=== PATIENT | female | born 1955 | race Caucasian/White ===

== ENCOUNTER 2016-09-18 12:16 | Inpatient (IN) | payer BC ==
[2016-09-18] MEDS ORDERED: SODIUM CHLORIDE 0.9% 1,000 ML IV STA (12:51)
[2016-09-18] MEDS ORDERED: IPRATROPIUM-ALBUTEROL 3 ML NEB INHALATION STA (12:51)
--- NOTE | 2016-09-18 12:54 | ED ---
General Adult HPI - General Source: patient, RN notes reviewed Mode of arrival: ambulatory Limitations: no limitations <Herbie Robertson - Last Filed: 09/18/16 14:09> <David Sow - Last Filed: 09/18/16 14:35> - General Chief complaint: Shortness of Breath Stated complaint: Difficulty breathing Time Seen by Provider: 09/18/16 12:40 - History of Present Illness Initial comments: Patient 61-year-old female significant past medical history for COPD, who presents emergency room today with chief complaint of increased cough congestion over the last 3 days. She does admit that she was cleaning up some areas of the house where she noticed some old. She states she thinks it's related to that. She states a few days after that she began feeling sick. States she's tried [id number] medications with little relief. She does admit that she does have a history of COPD but does not use the inhalers and breathing treatment at home due to the expense. She does admit that she went to [facility] earlier today who did do a breathing treatment and steroid shot advised to come here to the emergency room. Patient admits that she is still feeling somewhat short of breath and congested. She denies any pain. Denies any other complaints. Patient denies any recent fever, chills, chest pain, back pain, abdominal pain, nausea or vomiting, numbness or tingling, dysuria or hematuria, constipation or diarrhea, headaches or visual changes, or any other complaints. (Herbie Robertson) - Related Data Home Medications Medication Instructions Recorded Confirmed Calcium Carbonate [Calcium] 600 mg PO DAILY 09/18/16 09/18/16 FLUoxetine HCL [PROzac] 40 mg PO DAILY 09/18/16 09/18/16 Multivitamins, Thera [Multivitamin 1 tab PO DAILY 09/18/16 09/18/16 (formulary)] Simvastatin Unknown Dose 1 tab PO HS 09/18/16 09/18/16 Allergies Allergy/AdvReac Type Severity Reaction Status Date / Time erythromycin base Allergy Unknown Verified 09/18/16 13:16 Review of Systems ROS Other: All systems not noted in ROS Statement are negative. <Herbie Robertson - Last Filed: 09/18/16 14:09> ROS Other: All systems not noted in ROS Statement are negative. <David Sow - Last Filed: 09/18/16 14:35> ROS Statement: Those systems with pertinent positive or pertinent negative responses have been documented in the HPI. Past Medical History Past Medical History: COPD, Hypertension History of Any Multi-Drug Resistant Organisms: None Reported Past Surgical History: Breast Surgery, Hysterectomy, Tonsillectomy Past Psychological History: Depression Smoking Status: Former smoker Past Alcohol Use History: Occasional Past Drug Use History: None Reported <RobertsonHerbie - Last Filed: 09/18/16 14:09> General Exam Limitations: no limitations <MarceloHerbie - Last Filed: 09/18/16 14:09> General appearance: alert, in no apparent distress, anxious Head exam: Present: atraumatic, normocephalic, normal inspection Eye exam: Present: normal appearance, PERRL, EOMI. Absent: scleral icterus, conjunctival injection, periorbital swelling ENT exam: Present: normal exam, mucous membranes moist Neck exam: Present: normal inspection. Absent: tenderness, meningismus, lymphadenopathy Respiratory exam: Present: normal lung sounds bilaterally, wheezes, decreased breath sounds, prolonged expiratory. Absent: respiratory distress, rales, rhonchi, stridor Cardiovascular Exam: Present: regular rate, normal rhythm, normal heart sounds. Absent: systolic murmur, diastolic murmur, rubs, gallop, clicks GI/Abdominal exam: Present: soft, normal bowel sounds. Absent: distended, tenderness, guarding, rebound, rigid Extremities exam: Present: normal inspection, full ROM, normal capillary refill. Absent: tenderness, pedal edema, joint swelling, calf tenderness Back exam: Present: normal inspection Neurological exam: Present: alert, oriented X3, CN II-XII intact Psychiatric exam: Present: normal affect, normal mood Skin exam: Present: warm, dry, intact, normal color. Absent: rash <David Sow - Last Filed: 09/18/16 14:35> - General Exam Comments Initial Comments: General: The patient is awake and alert, in mild distress Eye: Pupils are equal, round and reactive to light, extra-ocular movements are intact. No nystagmus. There is normal conjunctiva bilaterally. No signs of icterus. Ears, nose, mouth and throat: There are moist mucous membranes and no oral lesions. Neck: The neck is supple, there is no tenderness or JVD. Cardiovascular: There is a regular rate and rhythm. No murmur, rub or gallop is appreciated. Respiratory: Bilateral expiratory wheeze. Mild accessory muscle use. No stridor, rales, or rhonchi. Gastrointestinal: Soft, non-distended, non-tender abdomen without masses or organomegaly noted. There is no rebound or guarding present. No CVA tenderness. Bowel sounds are unremarkable. Musculoskeletal: Normal ROM, no tenderness. Strength 5/5. Sensation intact. Pulses equal bilaterally 2+. Neurological: A&O x 3. CN II-XII intact, There are no obvious motor or sensory deficits. Coordination appears grossly intact. Speech is normal. Skin: Skin is warm and dry and no rashes or lesions are noted. Psychiatric: Cooperative, appropriate mood & affect, normal judgment. (Herbie Robertson) Medical Decision Making - Lab Data Result diagrams: 09/18/16 13:05 09/18/16 13:05 <Herbie Robertson - Last Filed: 09/18/16 14:09> - Lab Data Result diagrams: 09/18/16 13:05 09/18/16 13:05 <David Sow - Last Filed: 09/18/16 14:35> - Medical Decision Making Patient reexamined at this time still showing signs of respiratory distress. We 'll be given hour-long treatment at this time. Patient's labs reviewed shows a 10 red 7 white cells. Patient denies any UTI symptoms. Culture pending. Patient will be admitted for COPD exacerbation. Continue breathing treatments and steroids. (Herbie Robertson) 61 female here with severe shortness of breath, history of COPD, coronary with COPD exacerbation, hypoxia, no improvement on impatient and ER nebulizer, will admit (David Sow) - Lab Data Lab Results 09/18/16 09/18/16 09/18/16 Range/Units 13:05 13:05 13:05 WBC 8.7 (3.8-10.6) k/uL RBC 5.04 (3.80-5.40) m/uL Hgb 15.6 (11.4-16.0) gm/dL Hct 46.8 H (34.0-46.0) % MCV 92.8 (80.0-100.0) fL MCH 31.0 (25.0-35.0) pg MCHC 33.4 (31.0-37.0) g/dL RDW 12.8 (11.5-15.5) % Plt Count 199 (150-450) k/uL Neutrophils % 76 % Lymphocytes % 18 % Monocytes % 3 % Eosinophils % 1 % Basophils % 1 % Neutrophils # 6.6 (1.3-7.7) k/uL Lymphocytes # 1.6 (1.0-4.8) k/uL Monocytes # 0.2 (0-1.0) k/uL Eosinophils # 0.1 (0-0.7) k/uL Basophils # 0.1 (0-0.2) k/uL PT (9.0-12.0) sec INR (<1.1) APTT (22.0-30.0) sec Sodium 143 (137-145) mmol/L Potassium 3.9 (3.5-5.1) mmol/L Chloride 106 (98-107) mmol/L Carbon Dioxide 24 (22-30) mmol/L Anion Gap 13 mmol/L BUN 14 (7-17) mg/dL Creatinine 0.85 (0.52-1.04) mg/dL Est GFR (MDRD) Af Amer >60 (>60 ml/min/1.73 sqM) Est GFR (MDRD) Non-Af >60 (>60 ml/min/1.73 sqM) Glucose 114 H (74-99) mg/dL Calcium 10.9 H (8.4-10.2) mg/dL Total Bilirubin 0.8 (0.2-1.3) mg/dL AST 101 H (14-36) U/L ALT 153 H (9-52) U/L Alkaline Phosphatase 86 (38-126) U/L Total Creatine Kinase 86 (30-135) U/L CK-MB (CK-2) 0.6 (0.0-2.4) ng/mL CK-MB (CK-2) Rel Index 0.7 Troponin I <0.012 (0.000-0.034) ng/mL Total Protein 8.2 (6.3-8.2) g/dL Albumin 4.8 (3.5-5.0) g/dL Urine Color Urine Appearance (Clear) Urine pH (5.0-8.0) Ur Specific [place] (1.001-1.035) Urine Protein (Negative) Urine Glucose (UA) (Negative) Urine Ketones (Negative) Urine Blood (Negative) Urine Nitrite (Negative) Urine Bilirubin (Negative) Urine Urobilinogen (<2.0) mg/dL Ur Leukocyte Esterase (Negative) Urine RBC (0-5) /hpf Urine WBC (0-5) /hpf Ur Squamous Epith Cells (0-4) /hpf 09/18/16 09/18/16 Range/Units 13:05 13:05 WBC (3.8-10.6) k/uL RBC (3.80-5.40) m/uL Hgb (11.4-16.0) gm/dL Hct (34.0-46.0) % MCV (80.0-100.0) fL MCH (25.0-35.0) pg MCHC (31.0-37.0) g/dL RDW (11.5-15.5) % Plt Count (150-450) k/uL Neutrophils % % Lymphocytes % % Monocytes % % Eosinophils % % Basophils % % Neutrophils # (1.3-7.7) k/uL Lymphocytes # (1.0-4.8) k/uL Monocytes # (0-1.0) k/uL Eosinophils # (0-0.7) k/uL Basophils # (0-0.2) k/uL PT 10.5 (9.0-12.0) sec INR 1.0 (<1.1) APTT 24.7 (22.0-30.0) sec Sodium (137-145) mmol/L Potassium (3.5-5.1) mmol/L Chloride (98-107) mmol/L Carbon Dioxide (22-30) mmol/L Anion Gap mmol/L BUN (7-17) mg/dL Creatinine (0.52-1.04) mg/dL Est GFR (MDRD) Af Amer (>60 ml/min/1.73 sqM) Est GFR (MDRD) Non-Af (>60 ml/min/1.73 sqM) Glucose (74-99) mg/dL Calcium (8.4-10.2) mg/dL Total Bilirubin (0.2-1.3) mg/dL AST (14-36) U/L ALT (9-52) U/L Alkaline Phosphatase (38-126) U/L Total Creatine Kinase (30-135) U/L CK-MB (CK-2) (0.0-2.4) ng/mL CK-MB (CK-2) Rel Index Troponin I (0.000-0.034) ng/mL Total Protein (6.3-8.2) g/dL Albumin (3.5-5.0) g/dL Urine Color Yellow Urine Appearance Clear (Clear) Urine pH 8.0 (5.0-8.0) Ur Specific [place] 1.010 (1.001-1.035) Urine Protein Negative (Negative) Urine Glucose (UA) Negative (Negative) Urine Ketones Negative (Negative) Urine Blood Negative (Negative) Urine Nitrite Negative (Negative) Urine Bilirubin Negative (Negative) Urine Urobilinogen <2.0 (<2.0) mg/dL Ur Leukocyte Esterase Large H (Negative) Urine RBC 10 H (0-5) /hpf Urine WBC 47 H (0-5) /hpf Ur Squamous Epith Cells 2 (0-4) /hpf Critical Care Time Critical Care Time: Yes <David Sow - Last Filed: 09/18/16 14:35> Disposition Time of Disposition: 14:10 <Herbie Robertson - Last Filed: 09/18/16 14:09> <David Sow - Last Filed: 09/18/16 14:35> Clinical Impression: COPD exacerbation, Hypoxia Disposition: ADMITTED IP TO THIS HOSP Condition: Serious Referrals: None,Stated [Primary Care Provider] - 1-2 days
[2016-09-18 13:21] LABS: Basophils # (A) 0.1 k/uL (0-0.2); Basophils % (A) 1 %; CH 31.3; CHCM 33.9; Eosinophils # (A) 0.1 k/uL (0-0.7); Eosinophils % (A) 1 %; HCT 46.8 % (34.0-46.0); HGB 15.6 gm/dL (11.4-16.0); Luc # (Auto) 0.15; Luc % (Auto) 2; Lymphocytes # (A) 1.6 k/uL (1.0-4.8); Lymphocytes % (A) 18 %; MCHC 33.4 g/dL (31.0-37.0); MCV 92.8 fL (80.0-100.0); Mean Platelet Volume 7.4; Monocytes # (A) 0.2 k/uL (0-1.0); Monocytes % (A) 3 %; Neutrophils # (A) 6.6 k/uL (1.3-7.7); Neutrophils % (A) 76 %; RBC 5.04 m/uL (3.80-5.40); RDW 12.8 % (11.5-15.5); WBC 8.7 k/uL (3.8-10.6); WBC (Perox) 8.46
[2016-09-18 13:28] LABS: Partial Thromboplastin Time 24.7 sec (22.0-30.0); Prothrombin Time 10.5 sec (9.0-12.0)
[2016-09-18 13:31] LABS: ALT 153 U/L (9-52); AST 101 U/L (14-36); Alkaline Phosphatase 86 U/L (38-126); Anion Gap 13 mmol/L; Blood Urea Nitrogen 14 mg/dL (7-17); Calcium 10.9 mg/dL (8.4-10.2); Carbon Dioxide 24 mmol/L (22-30); Chloride 106 mmol/L (98-107); Glucose 114 mg/dL (74-99); Non-African American GFR(MDRD) >60 (>60 ml/min/1.73 sqM); Potassium 3.9 mmol/L (3.5-5.1); Sodium 143 mmol/L (137-145); Total Bilirubin 0.8 mg/dL (0.2-1.3); Total Protein 8.2 g/dL (6.3-8.2)
[2016-09-18] MEDS ORDERED: ACETAMINOPHEN TAB 500 MG TAB PO STA (13:37)
[2016-09-18 13:41] LABS: Creatine Kinase 86 U/L (30-135)
[2016-09-18 13:51] LABS: Appearance,Urine Clear (Clear); Bilirubin,Urine Negative (Negative); Glucose,Urine (UA) Negative (Negative); Ketones,Urine Negative (Negative); Leukocyte Esterase,Urine Large (Negative); Nitrite,Urine Negative (Negative); Particle Count 6059; Protein,Urine Negative (Negative); RBC,Urine 10 /hpf (0-5); Squamous Epithelial Cell,Urine 2 /hpf (0-4); UA Billing (MACRO vs. MICRO) MICRO; Urobilinogen,Urine <2.0 mg/dL (<2.0); WBC,Urine 47 /hpf (0-5)
--- NOTE | 2016-09-18 13:53 | XR ---
EXAMINATION TYPE: XR chest 2V DATE OF EXAM: 09/18/2016 1:28 PM COMPARISON: NONE. HISTORY: Shortness of breath with history of COPD/pulmonary emphysema TECHNIQUE: Frontal and lateral views of the chest are obtained. FINDINGS: There is no focal air space opacity, pleural effusion, or pneumothorax seen. There is mya pical lucency with tapering of the pulmonary vasculature relating to the patient's underlying COPD. T here is no appreciable flattening of the diaphragms or increased retrosternal airspace. The cardiac s ilhouette size is within normal limits. The osseous structures are intact. IMPRESSION: Biapical lucency related to underlying emphysematous changes. No focal consolidation.
[2016-09-18 13:54] LABS: Creatine Kinase MB 0.6 ng/mL (0.0-2.4); Troponin I <0.012 ng/mL (0.000-0.034)
[2016-09-18] MEDS ORDERED: ALBUTEROL NEBULIZED 15 MG, IPRATROPIUM NEBULIZED 0.5 MG INHALATION ONE ×2 (14:06)
[2016-09-18] MEDS ORDERED: SODIUM CHLORIDE 0.9% 1,000 ML IV ONE (14:14)
[2016-09-18] MEDS ORDERED: IPRATROPIUM-ALBUTEROL 3 ML NEB INHALATION PRN (14:14)
[2016-09-18 16:42] VITALS: BMI 29.2
[2016-09-18 16:53] LABS: Glucose,Whole Blood 210 mg/dL (75-99)
[2016-09-18] MEDS: INSULIN LISPRO (humaLOG) 300 UNIT/3 ML VIAL SQ SCH ×2 (17:20→21:08)
[2016-09-18] MEDS: methylPREDNISolone SOD SUCCI 125 MG/2 ML VIAL IV SCH ×2 (17:22→23:53)
[2016-09-18] MEDS: ACETAMINOPHEN TAB 325 MG TAB PO PRN ×2 (17:26→23:55)
[2016-09-18] MEDS: ENOXAPARIN 40 MG/0.4 ML SYRINGE SQ SCH (17:52)
[2016-09-18] MEDS ORDERED: IPRATROPIUM-ALBUTEROL 3 ML NEB INHALATION SCH (20:00)
[2016-09-18] MEDS: IPRATROPIUM-ALBUTEROL 3 ML NEB INHALATION SCH ×2 (20:38→23:06)
[2016-09-18 20:53] LABS: Glucose,Whole Blood 224 mg/dL (75-99)
[2016-09-18] MEDS: MELATONIN 3 MG TABLET PO SCH (21:09)
[2016-09-19] MEDS: methylPREDNISolone SOD SUCCI 125 MG/2 ML VIAL IV SCH ×3 (06:04→17:44)
[2016-09-19] MEDS: ACETAMINOPHEN TAB 325 MG TAB PO PRN ×3 (06:08→21:47)
[2016-09-19 07:04] LABS: Glucose,Whole Blood 140 mg/dL (75-99)
[2016-09-19] MEDS: IPRATROPIUM-ALBUTEROL 3 ML NEB INHALATION SCH ×4 (07:53→19:26)
[2016-09-19] MEDS: INSULIN LISPRO (humaLOG) 300 UNIT/3 ML VIAL SQ SCH ×4 (07:57→21:39)
[2016-09-19] MEDS: ENOXAPARIN 40 MG/0.4 ML SYRINGE SQ SCH (07:57)
[2016-09-19] MEDS: FLUoxetine HCL 20 MG CAP PO SCH (07:57)
[2016-09-19 09:05] LABS: Hemoglobin A1C 5.9 % (4.2-6.1)
--- NOTE | 2016-09-19 09:57 | HP ---
DATE OF ADMISSION: 09/18/2016 PRESENTING COMPLAINT: Not feeling well, short of breath, wheezing. HISTORY OF PRESENTING COMPLAINT: This is a pleasant 61-year-old patient who does not have a family doctor currently. Patient has got COPD from ex-smoking. Other chronic stable conditions include hyperlipidemia, arthritis. Patient presents with worsening cough, wheezing, short of breath. No sputum production. Some head, throat achiness, shortness of breath. Started on nebulized bronchodilators for which she feels a bit better. REVIEW OF SYSTEMS: CONSTITUTIONAL: Weak, tired. HEENT: Slight headache and sore throat. RESPIRATORY: As above. CARDIOVASCULAR: None. GASTROINTESTINAL: None. MUSCULOSKELETAL: Pain in the joints especially in the knees and hands. DERMATOLOGICAL: None. HEMATOLOGIC: None. LYMPHATICS: None. PSYCHIATRY: Anxious. NEUROLOGICAL: Not able to sleep well. GENITOURINARY: Urinary incontinence. Past medical history of COPD, hyperlipidemia, arthritis. PAST SURGICAL HISTORY: Breast surgery, hysterectomy, tonsillectomy, tubal ligation. SOCIAL HISTORY: Smoked 2 packs a day for 32 years; stopped about 17 years ago. Alcohol rarely. Retired from school district. . Family history of lung cancer and diabetes. HOME MEDICATIONS: 1. Simvastatin dose unknown. 2. Prozac 40 mg p.o. daily. 3. Calcium 600 mg p.o. daily. 4. Multivitamin 1 tablet p.o. daily. Allergies to ERYTHROMYCIN. On examination, temperature 96.5, pulse 108, respirations 20, blood pressure 124/65, pulse ox 95% on 2 L. GENERAL APPEARANCE: Average built, lying in bed, tired appearing. EYES: Pupils equal. Conjunctivae normal. HENT: Oral cavity normal. NECK: JVD not raised. Mass not palpable. RESPIRATORY: Effort increased. LUNGS: Decreased breath sounds. Prolonged expiration and wheezing. CARDIOVASCULAR: First and second seconds normal. No edema. ABDOMEN: Soft, nontender. Liver and spleen not palpable. LYMPHATIC: No lymph nodes palpable in the neck or axillae. PSYCHIATRY: Alert and oriented x3. Mood and affect slightly anxious appearing. NEUROLOGICAL: Pupils equal. Cranial nerves grossly intact. Power and sensation grossly intact. INVESTIGATIONS: White count 8.7, hemoglobin 15.6. Potassium 3.9. AST 101, ALT 153. UA leukocyte esterase positive. Chest x-ray shows some prominent pulmonary artery, some fleeting infiltrates in the right middle lobe. ASSESSMENT: 1. Acute chronic obstructive pulmonary disease exacerbation probably likely due to a viral pneumonitis in the right middle lobe, present on admission. 2. Primary osteoarthritis of the knees and hands. 3. Chronic insomnia from medical reasons. 4. Hyperlipidemia. 5. Chronic urinary stress incontinence. PLAN: Patient started on nebulized bronchodilators, IV steroids, subcu heparin. Home medication are resumed. Care was discussed with the patient. I will also give her a sleeping aid. Patient will be established with a family doctor upon discharge.
[2016-09-19] MEDS: LORATADINE-PSEUDOEPH 5-120 MG 1 EACH TAB.ER.12H PO SCH ×2 (12:24→21:40)
[2016-09-19 12:53] LABS: Glucose,Whole Blood 154 mg/dL (75-99)
[2016-09-19 17:09] LABS: Glucose,Whole Blood 155 mg/dL (75-99)
[2016-09-19 21:00] LABS: Glucose,Whole Blood 172 mg/dL (75-99)
[2016-09-19] MEDS: MELATONIN 3 MG TABLET PO SCH (21:40)
[2016-09-20] MEDS: methylPREDNISolone SOD SUCCI 40 MG/ML 1 ML VIAL IV SCH ×3 (00:43→17:34)
[2016-09-20 07:24] LABS: Glucose,Whole Blood 156 mg/dL (75-99)
--- NOTE | 2016-09-20 08:14 | PN ---
DATE OF SERVICE: 09/19/2016 PRESENTING COMPLAINT: Not feeling well, short of breath, wheezing. HISTORY OF PRESENT COMPLAINT: This is a pleasant 61-year-old patient who does not have a family doctor currently. Patient has COPD from former smoking habit. Other chronic stable conditions include hyperlipidemia, arthritis. Patient presents with worsening cough, wheezing, short of breath. No sputum production noted. Some head, throat, achiness, short of breath started on nebulized bronchodilators for which she feels a bit better today. REVIEW OF SYSTEMS: Done for constitutional, cardiovascular, GI, pulmonary, musculoskeletal: relevant findings as above. Medications include acetaminophen 650 mg q.6 hours, albuterol ipratropium which is DuoNeb 3 mL q.4 hours p.r.n., Lovenox 40 mg subQ daily, Prozac 40 mg p.o. daily, insulin a.c. and at bedtime, Claritin D 1 tab every 12 hours, melatonin 3 mg at bedtime, and Solu-Medrol 60 mg IV q.6 hours. Allergies to ERYTHROMYCIN. VITAL SIGNS: On exam temperature 96.9, pulse 90, respirations 18, blood pressure 118/68, pulse ox 93% on 2 L nasal cannula. PHYSICAL EXAM: General appearance, average build, lying in bed, tired-appearing. EYES: Pupils equal, conjunctivae normal. HEENT: Oral cavity normal. NECK: JVD not raised, mass not palpable. Respiratory effort increased. LUNGS: Decreased breath sounds, prolonged expiration and minimal wheezing. CARDIOVASCULAR: First and second sounds normal, no edema. ABDOMEN: Soft, nontender. Liver and spleen not palpable. LYMPHATICS: No lymph nodes palpable in the neck or the axillae. PSYCHIATRY: Alert and oriented x3. Mood and affect slightly anxious-appearing. INVESTIGATIONS: White count 8.7, hemoglobin 15.6, potassium 3.9. AST 101, ALT 153. ASSESSMENT: 1. Acute chronic obstructive pulmonary disease exacerbation, possibly likely due to a viral pneumonitis in the right middle lobe present on admission. 2. Primary osteoarthritis of the knees and hands. 3. Chronic insomnia from medical reasons. 4. Hyperlipidemia. 5. Chronic urinary stress incontinence. 6. Possible acute sinusitis. Patient has been prescribed Claritin daily. PLAN: Patient started on nebulized bronchodilators. IV steroids were initiated and now the plan is for a steroid taper. Solu-Medrol has been reduced to 40 mg q.8 hours. Home medications were reviewed and resumed.
[2016-09-20] MEDS: LORATADINE-PSEUDOEPH 5-120 MG 1 EACH TAB.ER.12H PO SCH ×2 (08:22→21:18)
[2016-09-20] MEDS: INSULIN LISPRO (humaLOG) 300 UNIT/3 ML VIAL SQ SCH ×4 (08:22→21:19)
[2016-09-20] MEDS: FLUoxetine HCL 20 MG CAP PO SCH (08:22)
[2016-09-20] MEDS: ENOXAPARIN 40 MG/0.4 ML SYRINGE SQ SCH (08:22)
[2016-09-20] MEDS: IPRATROPIUM-ALBUTEROL 3 ML NEB INHALATION SCH ×5 (08:47→23:38)
[2016-09-20 09:28] LABS: Anion Gap 10 mmol/L; Blood Urea Nitrogen 21 mg/dL (7-17); Calcium 9.6 mg/dL (8.4-10.2); Carbon Dioxide 23 mmol/L (22-30); Chloride 110 mmol/L (98-107); Glucose 161 mg/dL (74-99); Non-African American GFR(MDRD) >60 (>60 ml/min/1.73 sqM); Potassium 4.9 mmol/L (3.5-5.1); Sodium 143 mmol/L (137-145)
[2016-09-20 11:45] LABS: Glucose,Whole Blood 122 mg/dL (75-99)
[2016-09-20] MEDS: BUDESONIDE 1 MG/2 ML NEBU INHALATION SCH ×2 (12:14→20:34)
[2016-09-20 16:58] LABS: Glucose,Whole Blood 135 mg/dL (75-99)
[2016-09-20 21:10] LABS: Glucose,Whole Blood 173 mg/dL (75-99)
[2016-09-20] MEDS: MELATONIN 3 MG TABLET PO SCH (21:18)
[2016-09-21] MEDS: methylPREDNISolone SOD SUCCI 40 MG/ML 1 ML VIAL IV SCH ×3 (00:25→17:58)
[2016-09-21] MEDS: IPRATROPIUM-ALBUTEROL 3 ML NEB INHALATION SCH ×5 (02:59→20:13)
--- NOTE | 2016-09-21 05:14 | PN ---
DATE OF SERVICE: 09/20/2016 ADMISSION DATE: 09/18/2016 PRESENTING COMPLAINT: Not feeling well, short of breath, wheezing. HISTORY OF PRESENT COMPLAINT: This is a pleasant 61-year-old patient who does not have a family doctor currently. Patient has COPD from former smoking habit. Other chronic stable conditions include hyperlipidemia, arthritis. Patient presents with worsening cough, wheezing, shortness of breath. Less sputum production noted. Some head, throat, achiness and shortness of breath, started on nebulized bronchodilators for which she feels a bit better today. She continues to have a coarse cough and yellow sputum production. Patient complains of not being able to sleep well. REVIEW OF SYSTEMS: Done for constitutional, cardiovascular, GI, pulmonary, musculoskeletal; relevant findings as above. Medications include acetaminophen 650 mg q.6 hours, albuterol ipratropium which is DuoNeb 3 mL every 4 hours p.r.n., Lovenox 40 mg subcu daily, Prozac 40 mg p.o. daily, insulin a.c. and at bedtime, Claritin D 1 tab every 12 hours, melatonin 3 mg at bedtime, and Solu-Medrol 60 mg IV q.6 hours. Allergies to ERYTHROMYCIN. On exam, temperature 97.7, pulse 88, respirations 20, blood pressure 139/65, oxygen saturation 92% on nasal cannula 2 L. PHYSICAL EXAM: GENERAL APPEARANCE: Average build, lying in bed, tired appearing. Face is red from coughing. EYES: Pupils equal. Conjunctivae normal. HEENT: Oral cavity normal. NECK: JVD not raised, mass not palpable. RESPIRATORY: Effort increased with some wheezing noted. LUNGS: Decreased breath sounds, prolonged expiration and minimal wheezing. CARDIOVASCULAR: First and second sounds normal, no edema. ABDOMEN: Soft, nontender. Liver and spleen not palpable. LYMPHATICS: No lymph nodes palpable in the neck or the axillae. PSYCHIATRY: Alert and oriented x3. Mood and affect slightly anxious appearing. INVESTIGATIONS: White count improved from yesterday, 8.2 today. All other labs within normal limits. ASSESSMENT: 1. Acute chronic obstructive pulmonary disease exacerbation, possibly likely due to a viral pneumonia in the right middle lobe present on admission. Patient is slow to respond to treatment interventions. Will continue to follow. 2. Primary osteoarthritis of the knees and hands. 3. Chronic insomnia from medical reasons. 4. Hyperlipidemia. 5. Chronic urinary stress incontinence. 6. Possible acute sinusitis. Patient has been prescribed Claritin D daily. PLAN: Patient continues on nebulized bronchodilators. IV steroids were tapered. We are continuing Pulmicort. Will continue to follow. Rounds and progress note were performed on the patient by me the nurse practitioner and attending Dr. Melvin. The relevant and smart points of the rounding progress notes and diagnosis plan is as dictated above.
[2016-09-21 07:36] LABS: Glucose,Whole Blood 138 mg/dL (75-99)
[2016-09-21] MEDS: BUDESONIDE 1 MG/2 ML NEBU INHALATION SCH ×2 (08:28→20:13)
[2016-09-21] MEDS: ENOXAPARIN 40 MG/0.4 ML SYRINGE SQ SCH (09:18)
[2016-09-21] MEDS: FLUoxetine HCL 20 MG CAP PO SCH (09:18)
[2016-09-21] MEDS: INSULIN LISPRO (humaLOG) 300 UNIT/3 ML VIAL SQ SCH ×4 (09:18→21:38)
[2016-09-21] MEDS: LORATADINE-PSEUDOEPH 5-120 MG 1 EACH TAB.ER.12H PO SCH ×2 (09:18→21:38)
[2016-09-21] MEDS: ACETAMINOPHEN TAB 325 MG TAB PO PRN (09:30)
[2016-09-21 11:51] LABS: Glucose,Whole Blood 121 mg/dL (75-99)
[2016-09-21 17:29] LABS: Glucose,Whole Blood 157 mg/dL (75-99)
--- NOTE | 2016-09-21 20:17 | PN ---
DATE OF SERVICE: 09/19/2016 ADDENDUM: This patient was seen and examined by me. Patient was also seen and examined by nurse practitioner Ms. Vaughn. Relevant points of the history/physical/diagnoses/plan were discussed and are as dictated in the noted by Ms. Vaughn.
--- NOTE | 2016-09-21 21:04 | PN ---
DATE OF SERVICE: 09/21/2016 PRESENTING COMPLAINT: Not feeling well, short of breath, wheezing. INTERVAL HISTORY: This patient presented with not feeling well, shortness of breath; has a history of COPD and former smoking habit. Today patient continues to have a non-productive cough that is frequent in nature. No sputum production. Some head, throat, neck achiness and shortness of breath. Patient states she slept some, about 4 hours. Review of systems done for constitutional, cardiovascular, GI, pulmonary, musculoskeletal; relevant findings as above. CURRENT MEDICATIONS: 1. Acetaminophen. 2. Albuterol. 3. Lovenox. 4. Prozac. 5. Claritin-D. 6. IV Solu-Medrol. ALLERGIES: ERYTHROMYCIN. PHYSICAL EXAMINATION: VITAL SIGNS: Temperature 97.0, pulse 76, respiration 22, blood pressure 137/84, oxygen saturation 90% on 2 L nasal cannula. GENERAL APPEARANCE: Patient sitting up in bed, at bedside. Appears tired. Face is red from coughing. Anxious-appearing. EYES: Pupils equal. Conjunctivae normal. NECK: JVD not raised. Mass not palpable. RESPIRATORY: Effort increased with some wheezing noted. LUNGS: Decreased breath sounds, prolonged expiration and minimal wheezing. CARDIOVASCULAR: S1, S2 noted and normal. No edema. ABDOMEN: Soft, nontender. Liver and spleen not palpable. PSYCHIATRY: Alert and oriented x3. Mood and affect anxious-appearing. INVESTIGATIONS. No current lab values to report. ASSESSMENT: 1. Acute chronic obstructive pulmonary disease exacerbation, possibly likely due to viral pneumonia in the right middle lobe, present on admission. Patient is slow to respond to treatment interventions. Will continue to follow. 2. Primary osteoarthritis of the knees and hands. 3. Sleep deprivation, chronic. 4. Hyperlipidemia. 5. Chronic urinary stress incontinence. 6. Possible acute sinusitis. Patient has been prescribed Claritin-D daily. PLAN: Patient continues on nebulized bronchodilators. IV steroids were tapered. Pulmicort continues. Discussion was held with patient regarding necessity for quality sleep; possibly consider taking naps during the afternoon. History and physical was performed on the patient by me/nurse practitioner and attending/Dr. Melvin. The relevant points of the history, physical, diagnoses and plan were discussed and are as dictated above.
[2016-09-21 21:08] LABS: Glucose,Whole Blood 145 mg/dL (75-99)
[2016-09-21] MEDS: MELATONIN 3 MG TABLET PO SCH (21:38)
--- NOTE | 2016-09-21 21:38 | PN ---
DATE OF SERVICE: 09/20/2016 ADDENDUM: This patient was seen and examined by me. The patient was also seen and examined by nurse practitioner Ms. Vaughn. The relevant points of the history, physical, diagnoses and plan were discussed with the nurse practitioner and are as dictated in her progress note.
[2016-09-22] MEDS: IPRATROPIUM-ALBUTEROL 3 ML NEB INHALATION SCH ×7 (00:40→23:39)
[2016-09-22 07:28] LABS: Glucose,Whole Blood 131 mg/dL (75-99)
[2016-09-22] MEDS: BUDESONIDE 1 MG/2 ML NEBU INHALATION SCH ×2 (08:33→19:31)
[2016-09-22] MEDS: methylPREDNISolone SOD SUCCI 40 MG/ML 1 ML VIAL IV SCH ×2 (08:51)
[2016-09-22] MEDS: ENOXAPARIN 40 MG/0.4 ML SYRINGE SQ SCH (08:51)
[2016-09-22] MEDS: LORATADINE-PSEUDOEPH 5-120 MG 1 EACH TAB.ER.12H PO SCH ×2 (08:52→20:00)
[2016-09-22] MEDS: INSULIN LISPRO (humaLOG) 300 UNIT/3 ML VIAL SQ SCH ×4 (08:52→22:27)
[2016-09-22] MEDS: FLUoxetine HCL 20 MG CAP PO SCH (08:52)
[2016-09-22 09:09] LABS: CH 31.2; CHCM 33.7; HCT 43.6 % (34.0-46.0); HDW 2.43; HGB 14.4 gm/dL (11.4-16.0); MCH 30.8 pg (25.0-35.0); MCV 93.3 fL (80.0-100.0); Mean Platelet Volume 7.5; RBC 4.67 m/uL (3.80-5.40); RDW 12.8 % (11.5-15.5); WBC 8.8 k/uL (3.8-10.6)
[2016-09-22 09:19] LABS: Anion Gap 10 mmol/L; Blood Urea Nitrogen 17 mg/dL (7-17); Calcium 9.9 mg/dL (8.4-10.2); Carbon Dioxide 28 mmol/L (22-30); Chloride 104 mmol/L (98-107); Glucose 165 mg/dL (74-99); Non-African American GFR(MDRD) >60 (>60 ml/min/1.73 sqM); Potassium 4.4 mmol/L (3.5-5.1); Sodium 142 mmol/L (137-145)
[2016-09-22 11:49] LABS: Glucose,Whole Blood 96 mg/dL (75-99)
--- NOTE | 2016-09-22 13:12 | P.CNPUL ---
History of Present Illness Consult date: 09/22/16 Reason for consult: COPD History of present illness: Pleasant 61-year-old female patient with known history of COPD. The patient used to live in [facility] and she is currently moved to [facility]. She had seen a assistant sales director in her previous residence. The patient has not been on a maintenance inhalers. The last COPD exacerbation was in 2007, otherwise her only disease has been essentially stable and inactive. She got hospitalized 3 days ago for an acute COPD exacerbation. She had increased cough , chest tightness and wheezing. She had a chest x-ray that showed no acute abnormalities. Over the past 2-3 days the patient is still having same symptoms with some limited improvement with of her treatment which include a combination of bronchitis and systemic steroids. Her cough remains harsh. No significant sputum production. No hemoptysis. No pleurisy. She is on albuterol and Atrovent about treatments around the clock. She is also on Pulmicort Respules 1 mg twice a day. No 70 charted asthma. 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 She has more than 43-[id number] smoking history and she quit smoking many years back. Review of Systems 12 point review of system was done and the positive findings are almost above history of present illness Past Medical History Past Medical History: COPD, Hyperlipidemia, Hypertension Additional Past Medical History / Comment(s): COPD and previous COPD exaerbation in 2007, obesity, hyperlipidemia, steroid induced hyperglycemia History of Any Multi-Drug Resistant Organisms: None Reported Past Surgical History: Breast Surgery, Hysterectomy, Tonsillectomy, Tubal Ligation Past Psychological History: Depression Smoking Status: Former smoker (quit smoking in 1999, has smoked 1-2 PPD for 32 years, no alcoholism, no IVDA) Past Alcohol Use History: Occasional Additional Past Alcohol Use History / Comment(s): social, very rarely Past Drug Use History: None Reported - Past Family History Mother Family Medical History: Cancer, Diabetes Mellitus Additional Family Medical History / Comment(s): of lung cancer Father Family Medical History: Renal Disease Additional Family Medical History / Comment(s): from complications of x4 abdominal aortic aneurysms, post-op Medications and Allergies Home Medications Medication Instructions Recorded Confirmed Type Calcium Carbonate [Calcium] 600 mg PO DAILY 09/18/16 09/18/16 History FLUoxetine HCL [PROzac] 40 mg PO DAILY 09/18/16 09/18/16 History Multivitamins, Thera [Multivitamin 1 tab PO DAILY 09/18/16 09/18/16 History (formulary)] Simvastatin Unknown Dose 20 mg PO HS 09/18/16 09/18/16 History Allergies Allergy/AdvReac Type Severity Reaction Status Date / Time erythromycin base Allergy Unknown Verified 09/18/16 13:16 Physical Exam Vitals: Vital Signs Temp Pulse Pulse Resp BP BP Pulse Ox 09/22/16 08:56 80 09/22/16 08:33 84 09/22/16 07:00 97.3 F L 82 20 158/89 90 L 09/22/16 00:00 85 09/21/16 23:00 97.4 F L 85 18 135/86 93 L 09/21/16 20:34 80 09/21/16 20:14 80 09/21/16 16:17 80 09/21/16 16:04 76 09/21/16 15:00 97.0 F L 83 22 137/84 90 L Intake and Output 09/21/16 09/22/16 09/22/16 22:59 06:59 14:59 Intake Total 640 300 240 Balance 640 300 240 Intake: Oral 640 300 240 Other: Voiding Method Toilet Toilet # Voids 1 2 Head exam was generally normal. There was no scleral icterus or corneal arcus. Mucous membranes were moist.Neck was supple and without jugular venous distension, thyromegaly, or carotid bruits. Carotids were easily palpable bilaterally. There was no adenopathy. Lung sounds are diminished bilaterally and there is prolongation of the expiratory phase of breathing and scattered external wheezes throughout the lung sheppard bilaterally.Cardiac exam revealed the PMI to be normally situated and sized. The rhythm was regular and no extrasystoles were noted during several minutes of auscultation. The first and second heart sounds were normal and physiologic splitting of the second heart sound was noted. There were no murmurs, rubs, clicks, or gallops. Abdominal exam revealed normal bowel sounds. The abdomen was soft, non-tender, and without masses, organomegaly, or appreciable enlargement of the abdominal aorta.Examination of the extremities revealed easily palpable radial, femoral and pedal pulses. There was no cyanosis, clubbing or edema. Results - Laboratory Findings CBC and BMP: 09/22/16 08:15 09/22/16 08:15 PT/INR, D-dimer PT 10.5 sec (9.0-12.0) 09/18/16 13:05 INR 1.0 (<1.1) 09/18/16 13:05 Abnormal lab findings: Abnormal Labs 09/18/16 09/18/16 09/19/16 16:50 20:50 07:02 Chloride BUN Glucose POC Glucose (mg/dL) 210 H 224 H 140 H 09/19/16 09/19/16 09/19/16 12:49 17:07 20:57 Chloride BUN Glucose POC Glucose (mg/dL) 154 H 155 H 172 H 09/20/16 09/20/16 09/20/16 07:15 08:24 11:39 Chloride 110 H BUN 21 H Glucose 161 H POC Glucose (mg/dL) 156 H 122 H 09/20/16 09/20/16 09/21/16 16:53 21:01 07:08 Chloride BUN Glucose POC Glucose (mg/dL) 135 H 173 H 138 H 09/21/16 09/21/16 09/21/16 11:43 17:21 20:54 Chloride BUN Glucose POC Glucose (mg/dL) 121 H 157 H 145 H 09/22/16 09/22/16 07:07 08:15 Chloride BUN Glucose 165 H POC Glucose (mg/dL) 131 H - Diagnostic Findings Chest x-ray: image reviewed Assessment and Plan Plan: `Impression 1 COPD exacerbation with limited improvement with inpatient treatment for the past 2-3 days. 2 dyspnea cough secondary to above 3 obesity 4 hyperlipidemia 5 mild degree of steroid-induced hyperglycemia Plan Continue current treatment with DuoNeb overestimates 4 times a day around-the- clock. Continue Pulmicort Respules and add Perforomist neb last treatment twice a day. Tussionex for cough. Repeat chest x-ray. Continued IV Solu- Medrol. Add heparin for DVT prophylaxis. Anticipate further improvement over the next 24-48 hours. Cover this patient with empiric antibiotics for any respiratory checked infection/atypical microorganisms causing bronchitis and the patient will be started on Levaquin 500 milligrams by mouth daily.
[2016-09-22] MEDS: CHLORPHEN-HYDROcod 8-10mg/5ml 5 ML ORAL.SYRG PO SCH (13:41)
[2016-09-22] MEDS: ACETAMINOPHEN TAB 325 MG TAB PO PRN ×2 (13:45→20:00)
[2016-09-22] MEDS: LEVOFLOXACIN 500 MG TAB PO SCH (13:46)
--- NOTE | 2016-09-22 16:35 | XR ---
EXAMINATION TYPE: XR chest 2V DATE OF EXAM: 09/22/2016 1:58 PM COMPARISON: 09/18/2016 HISTORY: 61-year-old female with dyspnea TECHNIQUE: Frontal and lateral views FINDINGS: The heart is normal size. Aorta and pulmonary vasculature within normal limits. There is patchy opaci ty at the basilar left lower lobe that is new. No pleural effusion. IMPRESSION: New patchy atelectasis or early pneumonia at the left base.
[2016-09-22 17:03] LABS: Glucose,Whole Blood 118 mg/dL (75-99)
[2016-09-22] MEDS: methylPREDNISolone SOD SUCCI 125 MG/2 ML VIAL IV SCH (17:16)
[2016-09-22] MEDS: FORMOTEROL FUMARATE 20 MCG/2 ML NEBU INHALATION SCH (19:31)
[2016-09-22] MEDS: MELATONIN 3 MG TABLET PO SCH (20:00)
[2016-09-22 20:34] LABS: Glucose,Whole Blood 177 mg/dL (75-99)
[2016-09-23] MEDS: CHLORPHEN-HYDROcod 8-10mg/5ml 5 ML ORAL.SYRG PO SCH ×3 (00:14→23:50)
[2016-09-23] MEDS: methylPREDNISolone SOD SUCCI 125 MG/2 ML VIAL IV SCH ×5 (00:15→23:45)
[2016-09-23] MEDS: IPRATROPIUM-ALBUTEROL 3 ML NEB INHALATION SCH ×6 (01:25→23:42)
[2016-09-23 07:44] LABS: Glucose,Whole Blood 151 mg/dL (75-99)
[2016-09-23] MEDS: BUDESONIDE 1 MG/2 ML NEBU INHALATION SCH ×2 (08:33→21:09)
[2016-09-23] MEDS: FORMOTEROL FUMARATE 20 MCG/2 ML NEBU INHALATION SCH ×2 (08:33→21:09)
[2016-09-23] MEDS: FLUoxetine HCL 20 MG CAP PO SCH (09:09)
[2016-09-23] MEDS: LORATADINE-PSEUDOEPH 5-120 MG 1 EACH TAB.ER.12H PO SCH ×2 (09:09→21:51)
[2016-09-23] MEDS: HEPARIN SODIUM,PORCINE 5,000 UNIT/ML 1 ML VIAL SQ SCH ×2 (09:09→21:50)
[2016-09-23] MEDS: INSULIN LISPRO (humaLOG) 300 UNIT/3 ML VIAL SQ SCH ×4 (09:10→21:51)
[2016-09-23 09:21] LABS: Basophils % (A) 0 %; CH 31.1; CHCM 32.7; Eosinophils % (A) 0 %; HCT 47.2 % (34.0-46.0); HDW 2.29; HGB 15.1 gm/dL (11.4-16.0); Luc # (Auto) 0.04; Luc % (Auto) 1; Lymphocytes # (A) 0.7 k/uL (1.0-4.8); Lymphocytes % (A) 9 %; MCH 30.5 pg (25.0-35.0); MCHC 31.9 g/dL (31.0-37.0); MCV 95.5 fL (80.0-100.0); Mean Platelet Volume 7.1; Monocytes # (A) 0.2 k/uL (0-1.0); Monocytes % (A) 3 %; Neutrophils # (A) 6.4 k/uL (1.3-7.7); Neutrophils % (A) 87 %; RBC 4.95 m/uL (3.80-5.40); RDW 13.1 % (11.5-15.5); WBC 7.4 k/uL (3.8-10.6); WBC (Perox) 7.45
--- NOTE | 2016-09-23 09:24 | PN ---
DATE OF SERVICE: 09/22/2016 PRESENTING COMPLAINT: Not feeling well, short of breath, wheezing. INTERVAL HISTORY: The patient presented with not feeling well, shortness of breath, has a history of COPD and former smoking habit. Today the patient continues to have a nonproductive cough that is frequent in nature. No sputum production. Patient is sitting up talking to family at the bedside. Complains of some shortness of breath. Continues to complain of a nonproductive cough. Patient states she only slept for about 5 hours over night. Patient appears anxious. Review of systems done for constitutional, cardiovascular, GI, pulmonary, musculoskeletal; relevant findings as above. CURRENT MEDICATIONS: Acetaminophen, albuterol, Lovenox, Prozac, Claritin-D, IV Solu-Medrol. ALLERGIES: ERYTHROMYCIN. PHYSICAL EXAMINATION: VITAL SIGNS: Temperature 98.1, pulse 96, respiratory rate 20, blood pressure 133/92, oxygen saturation 94% on 2 L nasal cannula. GENERAL APPEARANCE: Patient sitting up in bed, sister at the bedside along with brother in law. Patient seems relaxed, conversant, comfortable. EYES: Pupils equal. Conjunctivae normal. NECK: JVD not raised. Mass not palpable. RESPIRATORY: Effort increased with some wheezing noted. Dry cough with no sputum production. LUNGS: Decreased breath sounds, prolonged expiration and minimal wheezing. CARDIOVASCULAR: S1, S2 noted in normal. No edema. ABDOMEN: Soft, nontender. Liver and spleen not palpable. PSYCHIATRY: Alert and oriented x3. Mood and affect remains anxious appearing. INVESTIGATIONS: Lab values for today are within normal limits. No abnormal labs. Continuing to check blood glucose monitoring while patient remains on steroids. Chest x-ray reveals new patchy atelectasis or early pneumonia at the left base. Pulmonology was consulted today and their recommendations include continuing DuoNeb about 4 times a day around the clock, Pulmicort Respules and adding Perforomist neb twice a day, Tussionex cough syrup for the cough, repeating a chest x-ray, continuing IV Solu-Medrol. Additionally, patient will be covered with empiric antibiotics for any respiratory tract infection/atypical microorganism causing bronchitis. Patient was started on Levaquin 500 mg by mouth daily per Pulmonology's recommendations. ASSESSMENT: 1. Acute chronic obstructive pulmonary disease exacerbation, possibly likely due to viral pneumonia in the right middle lobe present on admission. Patient is slow to respond to treatment interventions. Pulmonology was consulted today and has seen the patient. Please see dictation under investigations above. 2. Primary osteoarthritis of the knees and hands. 3. Sleep deprivation, chronic. 4. Hyperlipidemia. 5. Chronic urinary stress incontinence. 6. Possible acute sinusitis. Patient has been prescribed Claritin-D daily. PLAN: Patient will be continued on nebulized bronchodilators, IV steroids and Perforomist neb twice a day, Tussionex for cough. Empiric antibiotics were started. Levaquin 500 mg by mouth daily. Discussion was once again had with patient regarding the necessity for quality sleep, urging patient to take naps during the afternoon. Additionally, patient was charged with turning off her electronic equipment so she can rest. The patient was seen and examined by me/nurse practitioner and attending/Dr. Melvin. The relevant points of the history/physical/diagnoses/plan were discussed and are as dictated above.
[2016-09-23 09:46] LABS: Anion Gap 10 mmol/L; Blood Urea Nitrogen 19 mg/dL (7-17); Calcium 9.8 mg/dL (8.4-10.2); Carbon Dioxide 26 mmol/L (22-30); Chloride 104 mmol/L (98-107); Glucose 226 mg/dL (74-99); Non-African American GFR(MDRD) >60 (>60 ml/min/1.73 sqM); Potassium 4.1 mmol/L (3.5-5.1); Sodium 140 mmol/L (137-145)
[2016-09-23 12:02] LABS: Glucose,Whole Blood 120 mg/dL (75-99)
[2016-09-23] MEDS: LEVOFLOXACIN 500 MG TAB PO SCH (14:34)
[2016-09-23] MEDS: ACETAMINOPHEN TAB 325 MG TAB PO PRN (14:36)
[2016-09-23 16:56] LABS: Glucose,Whole Blood 172 mg/dL (75-99)
--- NOTE | 2016-09-23 18:25 | P.PN ---
Subjective Pleasant 61-year-old female patient with known history of COPD. The patient used to live in [facility] and she is currently moved to [facility]. She had seen a exercise rider in her previous residence. The patient has not been on a maintenance inhalers. The last COPD exacerbation was in 2007, otherwise her only disease has been essentially stable and inactive. She got hospitalized 3 days ago for an acute COPD exacerbation. She had increased cough , chest tightness and wheezing. She had a chest x-ray that showed no acute abnormalities. Over the past 2-3 days the patient is still having same symptoms with some limited improvement with of her treatment which include a combination of bronchitis and systemic steroids. Her cough remains harsh. No significant sputum production. No hemoptysis. No pleurisy. She is on albuterol and Atrovent about treatments around the clock. She is also on Pulmicort Respules 1 mg twice a day. 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 She has more than [id number] smoking history and she quit smoking many years back. On 09/23/2016, the patient is still having shortness of breath chest tightness and wheezing. There has been limited improvement in her condition as of yesterday. We'll continue the bronchodilators. Continue the systemic steroids. Continued antibiotics. She is afebrile. She is hemodynamically stable. No change in mental status. Anticipate at least some improvement over the next 24-48 hours. Objective - Vital Signs Vital signs: Vital Signs Temp 97.5 F L 09/23/16 15:00 Pulse 92 09/23/16 16:30 Resp 18 09/23/16 15:00 BP 140/74 09/23/16 15:00 Pulse Ox 90 L 09/23/16 15:00 Intake & Output 09/22/16 09/23/16 09/23/16 18:59 06:59 18:59 Intake Total 480 1000 Balance 480 1000 Intake: Oral 480 1000 Other: Voiding Method Toilet Toilet Toilet # Voids 2 1 3 - Exam Head exam was generally normal. There was no scleral icterus or corneal arcus. Mucous membranes were moist.Neck was supple and without jugular venous distension, thyromegaly, or carotid bruits. Carotids were easily palpable bilaterally. There was no adenopathy. Lung sounds are diminished bilaterally and there is prolongation of the expiratory phase of breathing and scattered external wheezes throughout the lung sheppard bilaterally.Cardiac exam revealed the PMI to be normally situated and sized. The rhythm was regular and no extrasystoles were noted during several minutes of auscultation. The first and second heart sounds were normal and physiologic splitting of the second heart sound was noted. There were no murmurs, rubs, clicks, or gallops. Abdominal exam revealed normal bowel sounds. The abdomen was soft, non-tender, and without masses, organomegaly, or appreciable enlargement of the abdominal aorta.Examination of the extremities revealed easily palpable radial, femoral and pedal pulses. There was no cyanosis, clubbing or edema. - Labs CBC & Chem 7: 09/23/16 09:05 09/23/16 09:05 Labs: Abnormal Lab Results - Last 24 Hours (Table) 09/22/16 09/23/16 09/23/16 Range/Units 20:32 07:31 09:05 Hct 47.2 H (34.0-46.0) % Lymphocytes # 0.7 L (1.0-4.8) k/uL BUN (7-17) mg/dL Glucose (74-99) mg/dL POC Glucose (mg/dL) 177 H 151 H (75-99) mg/dL 09/23/16 09/23/16 09/23/16 Range/Units 09:05 12:00 16:55 Hct (34.0-46.0) % Lymphocytes # (1.0-4.8) k/uL BUN 19 H (7-17) mg/dL Glucose 226 H (74-99) mg/dL POC Glucose (mg/dL) 120 H 172 H (75-99) mg/dL Assessment and Plan Plan: `Impression 1 COPD exacerbation with limited improvement with inpatient treatment for the past 2-3 days. 2 dyspnea cough secondary to above 3 obesity 4 hyperlipidemia 5 mild degree of steroid-induced hyperglycemia Plan Continue current treatment with DuoNeb overestimates 4 times a day around-the- clock. Continue Pulmicort Respules and add Perforomist neb last treatment twice a day. Tussionex for cough. Repeat chest x-ray. Continued IV Solu- Medrol. Levaquin for I broad-spectrum antibiotic coverage which is essentially empiric at this point. I have not seen much of an improvement in this patient' s condition with the past 24 hours. Continue continue same treatment. Reevaluate this patient in a.m.
--- NOTE | 2016-09-23 18:36 | PN ---
DATE OF SERVICE: 09/23/2016 PRESENTING COMPLAINT: Not feeling well, short of breath, wheezing. INTERVAL HISTORY: The patient presented with not feeling well, shortness of breath, history of COPD, former smoking habit. Today the patient continues to have a nonproductive cough with frequency. No sputum production. Patient is sitting up in bed, talking to family at the bedside. Continues to complain of shortness at of breath and non-productive cough. Additionally, patient continues to feel tired, continues to appear anxious. Review of systems done for constitutional, cardiovascular, GI, pulmonary, musculoskeletal; relevant findings as above. CURRENT MEDICATIONS: 1. Acetaminophen. 2. Albuterol. 3. Lovenox. 4. Prozac. 5. Claritin D. 6. IV Solu-Medrol with tapered dose. ALLERGIES: ERYTHROMYCIN. PHYSICAL EXAMINATION: VITAL SIGNS: Temperature 97.5, pulse 91, respirations 18, blood pressure 140/74, oxygen saturation 90% on 3 L nasal cannula GENERAL APPEARANCE: Patient sitting up in bed, [id number] at the bedside along with brother. Patient is conversant, seems relaxed and comfortable. EYES: Pupils equal. Conjunctivae normal. NECK: JVD not raised. Mass is not palpable. RESPIRATORY: Effort increased with some wheezing noted. Dry cough with no sputum production. LUNGS: Decreased breath sounds bilaterally to the bases. Prolonged expiration and minimal wheezing. CARDIOVASCULAR: S1, S2 noted and normal. No edema. ABDOMEN: Soft, nontender. Liver and spleen not palpable. PSYCHIATRIC: Alert and oriented x3. Mood and affect remain anxious-appearing. INVESTIGATIONS: Labs include hematocrit 47.2, BUN 19. Blood glucose continues to be monitored secondary to steroid therapy; overall remains well controlled. ASSESSMENT: 1. Acute chronic obstructive pulmonary disease exacerbation, possibly likely due to viral pneumonia in the right middle lobe, present on admission. Patient continues to be slow to respond to treatment interventions. Pulmonology continues to follow the patient. 2. Primary osteoarthritis of the knees and hands. 3. Sleep deprivation, chronic. 4. Hyperlipidemia. 5. Chronic urinary stress incontinence. 6. Possible acute sinusitis. Patient has been prescribed Claritin D daily. PLAN: Patient will continue nebulized bronchodilators, IV steroids and Perforomist nebulizations twice a day, Tussionex for cough. Empiric antibiotics were started. Levaquin 500 mg by mouth daily. Patient is aware of the necessity for quality sleep and being restful. The patient was seen and examined by me, the nurse practitioner, and attending, Dr. Melvin. Relevant points of the history, physical, diagnoses and plan were discussed and are as dictated above.
[2016-09-23 21:16] LABS: Glucose,Whole Blood 133 mg/dL (75-99)
[2016-09-23] MEDS: MELATONIN 3 MG TABLET PO SCH (21:51)
[2016-09-24] MEDS: IPRATROPIUM-ALBUTEROL 3 ML NEB INHALATION SCH ×5 (03:51→19:10)
[2016-09-24] MEDS: methylPREDNISolone SOD SUCCI 125 MG/2 ML VIAL IV SCH ×4 (05:58→23:20)
[2016-09-24] MEDS: ACETAMINOPHEN TAB 325 MG TAB PO PRN (06:08)
[2016-09-24] MEDS: FORMOTEROL FUMARATE 20 MCG/2 ML NEBU INHALATION SCH ×2 (07:19→19:10)
[2016-09-24] MEDS: BUDESONIDE 1 MG/2 ML NEBU INHALATION SCH ×2 (07:19→19:10)
[2016-09-24 07:20] LABS: Glucose,Whole Blood 155 mg/dL (75-99)
[2016-09-24] MEDS: HEPARIN SODIUM,PORCINE 5,000 UNIT/ML 1 ML VIAL SQ SCH ×2 (08:48→21:10)
[2016-09-24] MEDS: FLUoxetine HCL 20 MG CAP PO SCH (08:48)
[2016-09-24] MEDS: LORATADINE-PSEUDOEPH 5-120 MG 1 EACH TAB.ER.12H PO SCH ×2 (08:48→21:10)
[2016-09-24] MEDS: INSULIN LISPRO (humaLOG) 300 UNIT/3 ML VIAL SQ SCH ×4 (08:48→21:11)
[2016-09-24 11:20] LABS: Glucose,Whole Blood 172 mg/dL (75-99)
[2016-09-24] MEDS: CHLORPHEN-HYDROcod 8-10mg/5ml 5 ML ORAL.SYRG PO SCH ×2 (11:45→23:20)
[2016-09-24] MEDS: HYDROcodone/APAP 5-325MG 1 EACH TAB PO PRN ×2 (12:00→17:59)
[2016-09-24] MEDS: MAGNESIUM HYDROXIDE 2,400 MG/10 ML CUP PO PRN ×2 (12:01→21:17)
--- NOTE | 2016-09-24 12:58 | P.PN ---
Subjective Pleasant 61-year-old female patient with known history of COPD. The patient used to live in [facility] and she is currently moved to [facility]. She had seen a accounting intern in her previous residence. The patient has not been on a maintenance inhalers. The last COPD exacerbation was in 2007, otherwise her only disease has been essentially stable and inactive. She got hospitalized 3 days ago for an acute COPD exacerbation. She had increased cough , chest tightness and wheezing. She had a chest x-ray that showed no acute abnormalities. Over the past 2-3 days the patient is still having same symptoms with some limited improvement with of her treatment which include a combination of bronchitis and systemic steroids. Her cough remains harsh. No significant sputum production. No hemoptysis. No pleurisy. She is on albuterol and Atrovent about treatments around the clock. She is also on Pulmicort Respules 1 mg twice a day. 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 She has more than 88-[id number] smoking history and she quit smoking many years back. On 09/23/2016, the patient is still having shortness of breath chest tightness and wheezing. There has been limited improvement in her condition as of yesterday. We'll continue the bronchodilators. Continue the systemic steroids. Continued antibiotics. She is afebrile. She is hemodynamically stable. No change in mental status. Anticipate at least some improvement over the next 24-48 hours. On this patient is still suffering from a breathing. She still having chest tightness, significant cough on today's evaluation that is increased skeletal chest pains patient with cough and. Her wheezing in general is improved. She remains afebrile hemodynamically stable. She is on DuoNeb neb treatments around the clock, she is on a combination of Perforomist and Pulmicort neb last treatment [id number], she is on Tussionex for cough, she is on IV Solu-Medrol. The patient has had also empiric antibiotic coverage with Levaquin orally. The patient has not had any bowel movements and she is having issues with constipation. Objective - Vital Signs Vital signs: Vital Signs Temp 96.4 F L 09/24/16 07:00 Pulse 90 09/24/16 11:23 Resp 18 09/24/16 07:00 BP 145/74 09/24/16 07:00 Pulse Ox 94 L 09/24/16 07:00 Intake & Output 09/23/16 09/24/16 09/24/16 18:59 06:59 18:59 Weight 72.575 kg Other: Voiding Method Toilet # Voids 3 1 - Exam Head exam was generally normal. There was no scleral icterus or corneal arcus. Mucous membranes were moist.Neck was supple and without jugular venous distension, thyromegaly, or carotid bruits. Carotids were easily palpable bilaterally. There was no adenopathy. Lung sounds are diminished bilaterally and there is prolongation of the expiratory phase of breathing and scattered external wheezes throughout the lung sheppard bilaterally.Cardiac exam revealed the PMI to be normally situated and sized. The rhythm was regular and no extrasystoles were noted during several minutes of auscultation. The first and second heart sounds were normal and physiologic splitting of the second heart sound was noted. There were no murmurs, rubs, clicks, or gallops. Abdominal exam revealed normal bowel sounds. The abdomen was soft, non-tender, and without masses, organomegaly, or appreciable enlargement of the abdominal aorta.Examination of the extremities revealed easily palpable radial, femoral and pedal pulses. There was no cyanosis, clubbing or edema. - Labs CBC & Chem 7: 09/23/16 09:05 09/23/16 09:05 Labs: Abnormal Lab Results - Last 24 Hours (Table) 09/23/16 09/23/16 09/24/16 Range/Units 16:55 21:09 06:55 POC Glucose (mg/dL) 172 H 133 H 155 H (75-99) mg/dL 09/24/16 Range/Units 11:19 POC Glucose (mg/dL) 172 H (75-99) mg/dL Assessment and Plan Plan: `Impression 1 COPD exacerbation with limited improvement 2 dyspnea cough secondary to above 3 obesity 4 hyperlipidemia 5 mild degree of steroid-induced hyperglycemia 6 skeletal chest wall pain secondary to aggressive cough and. Plan Continue current treatment, add [place] 5 for pain and is essentially due to skeletal chest wall pain secondary to coughing. This may exacerbate the patient 's constipation will give the patient [place] Oumou 2400 mg by mouth twice a day, when necessary. Continue breathing treatments and steroids. We will follow
[2016-09-24] MEDS: LEVOFLOXACIN 500 MG TAB PO SCH (14:00)
--- NOTE | 2016-09-24 16:00 | PN ---
Patient is a 61-year-old admitted secondary to COPD exacerbation. Patient has minimal improvement. Patient is complaining of musculoskeletal chest pain secondary to severe coughing. Dr. Brower ordered Tussionex for that. Patient otherwise has very minimal improvement. REVIEW OF SYSTEMS: CARDIOVASCULAR: No chest pain, no orthopnea, no PND, no palpitations. PULMONARY: As described in HPI. GASTROINTESTINAL: No diarrhea, nausea or vomiting. No abdominal pain. Normoactive bowel sounds. NEUROLOGIC: No headaches, no weakness, no numbness. Medications were reviewed. PHYSICAL EXAMINATION: VITAL SIGNS: Temperature 96.4, pulse of 90, respiratory rate of 18. Blood pressure is 145/74. Saturating at 94% on 3 L of oxygen by nasal cannula. GENERAL: The patient is alert and oriented x3, not in any acute distress. Well developed, well nourished. HEENT: Pupils are round and equally reacting to light. EOMI. No scleral icterus. No conjunctival pallor. Normocephalic, atraumatic. No pharyngeal erythema. No thyromegaly. CARDIOVASCULAR: S1 and S2 present. No murmurs, rubs, or gallops. PULMONARY: Minimal expiratory wheezing was appreciated. Fairly good air entry into bilateral lung sheppard. Minimal expiratory wheezing was appreciated. ABDOMEN: Soft, nontender, nondistended, normoactive bowel sounds. No palpable organomegaly. MUSCULOSKELETAL: No joint swelling or deformity. EXTREMITIES: No cyanosis, clubbing, or pedal edema. NEUROLOGICAL: Gross neurological examination did not reveal any focal deficits. SKIN: No rashes. LABORATORY DATA: CBC, CMP are essentially within normal limits. ASSESSMENT AND PLAN: 1. Acute on chronic hypercapnic respiratory failure secondary to chronic obstructive pulmonary disease exacerbation. 2. Obesity. 3. Hyperlipidemia. 4. Steroid-induced hyperglycemia. 5. Musculoskeletal chest pain secondary to cough. 6. Urinary stress incontinence. PLAN: To continue with systemic steroids, inhalational treatments. Tussionex for her cough and pain management.
[2016-09-24 16:33] LABS: Glucose,Whole Blood 141 mg/dL (75-99)
[2016-09-24] MEDS: MELATONIN 3 MG TABLET PO SCH (21:10)
[2016-09-24 21:24] LABS: Glucose,Whole Blood 147 mg/dL (75-99)
[2016-09-25] MEDS: methylPREDNISolone SOD SUCCI 125 MG/2 ML VIAL IV SCH ×3 (06:15→18:19)
[2016-09-25 07:09] LABS: Glucose,Whole Blood 154 mg/dL (75-99)
[2016-09-25] MEDS: BUDESONIDE 1 MG/2 ML NEBU INHALATION SCH ×2 (07:51→20:33)
[2016-09-25] MEDS: IPRATROPIUM-ALBUTEROL 3 ML NEB INHALATION SCH ×4 (07:51→20:33)
[2016-09-25] MEDS: FORMOTEROL FUMARATE 20 MCG/2 ML NEBU INHALATION SCH ×2 (07:51→20:41)
[2016-09-25] MEDS: INSULIN LISPRO (humaLOG) 300 UNIT/3 ML VIAL SQ SCH ×4 (08:24→20:56)
[2016-09-25] MEDS: LORATADINE-PSEUDOEPH 5-120 MG 1 EACH TAB.ER.12H PO SCH ×2 (08:24→20:56)
[2016-09-25] MEDS: FLUoxetine HCL 20 MG CAP PO SCH (08:24)
[2016-09-25] MEDS: HEPARIN SODIUM,PORCINE 5,000 UNIT/ML 1 ML VIAL SQ SCH ×2 (08:24→21:06)
[2016-09-25] MEDS: HYDROcodone/APAP 5-325MG 1 EACH TAB PO PRN ×2 (08:30→21:04)
[2016-09-25] MEDS: MAGNESIUM HYDROXIDE 2,400 MG/10 ML CUP PO PRN ×2 (08:30→18:25)
[2016-09-25 11:37] LABS: Glucose,Whole Blood 200 mg/dL (75-99)
--- NOTE | 2016-09-25 11:40 | PN ---
Patient has minimal limp when compared to yesterday. REVIEW OF SYSTEMS: CARDIOVASCULAR: No chest pain, no orthopnea, no PND, no palpitations. PULMONARY: as described in HPI. GASTROINTESTINAL: No diarrhea, nausea or vomiting. No abdominal pain. Normoactive bowel sounds. NEUROLOGIC: No headaches, no weakness, no numbness. Medications were reviewed. Temperature 97.5, pulse of 52, respiratory rate of 18, blood pressure is 120/61, saturating at 87% on room and patient does not use any oxygen at home. This is at rest. PHYSICAL EXAMINATION: GENERAL: The patient is alert and oriented x3, not in any acute distress. Well developed, well nourished. HEENT: Pupils are round and equally reacting to light. EOMI. No scleral icterus. No conjunctival pallor. Normocephalic, atraumatic. No pharyngeal erythema. No thyromegaly. CARDIOVASCULAR: S1 and S2 present. No murmurs, rubs, or gallops. PULMONARY: Patient still has wheezing fairly good air entry today. ABDOMEN: Soft, nontender, nondistended, normoactive bowel sounds. No palpable organomegaly. MUSCULOSKELETAL: No joint swelling or deformity. EXTREMITIES: No cyanosis, clubbing, or pedal edema. NEUROLOGICAL: Gross neurological examination did not reveal any focal deficits. SKIN: No rashes. LABORATORY DATA: None available. ASSESSMENT AND PLAN: 1. Acute on chronic hypercapnic respiratory failure secondary to acute chronic obstructive pulmonary disease exacerbation. 2. Obesity. 3. Hyperlipidemia. 4. Steroid-induced hyperglycemia. 5. Musculoskeletal chest pain secondary to cough and pain medications for that and cough, which improved actually today. 6. Urinary stress incontinence. PLAN: Continue with systemic steroids treatments and inhalation treatments. Awaiting improvement. Possibly patient can be discharged in a day or two. The patient may end up requiring oxygen. We will decide that in the next day or 2.
[2016-09-25] MEDS: CHLORPHEN-HYDROcod 8-10mg/5ml 5 ML ORAL.SYRG PO SCH (11:43)
[2016-09-25] MEDS: LEVOFLOXACIN 500 MG TAB PO SCH (11:47)
--- NOTE | 2016-09-25 13:50 | P.PN ---
Subjective Pleasant 61-year-old female patient with known history of COPD. The patient used to live in [facility] and she is currently moved to [facility]. She had seen a email developer in her previous residence. The patient has not been on a maintenance inhalers. The last COPD exacerbation was in 2007, otherwise her only disease has been essentially stable and inactive. She got hospitalized 3 days ago for an acute COPD exacerbation. She had increased cough , chest tightness and wheezing. She had a chest x-ray that showed no acute abnormalities. Over the past 2-3 days the patient is still having same symptoms with some limited improvement with of her treatment which include a combination of bronchitis and systemic steroids. Her cough remains harsh. No significant sputum production. No hemoptysis. No pleurisy. She is on albuterol and Atrovent about treatments around the clock. She is also on Pulmicort Respules 1 mg twice a day. 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 She has more than 14-[id number] smoking history and she quit smoking many years back. On 09/23/2016, the patient is still having shortness of breath chest tightness and wheezing. There has been limited improvement in her condition as of yesterday. We'll continue the bronchodilators. Continue the systemic steroids. Continued antibiotics. She is afebrile. She is hemodynamically stable. No change in mental status. Anticipate at least some improvement over the next 24-48 hours. On this patient is still suffering from a breathing. She still having chest tightness, significant cough on today's evaluation that is increased skeletal chest pains patient with cough and. Her wheezing in general is improved. She remains afebrile hemodynamically stable. She is on DuoNeb neb treatments around the clock, she is on a combination of Perforomist and Pulmicort neb last treatment [id number], she is on Tussionex for cough, she is on IV Solu-Medrol. The patient has had also empiric antibiotic coverage with Levaquin orally. The patient has not had any bowel movements and she is having issues with constipation. On 09/25/2016 the patient is somewhat improved compared to yesterday. The chest wall pain is improved as the patient is taking Wilkinson for pain control. This is skeletal pain secondary to her frequent coughing episodes. The patient is afebrile. Still bronchospastic and wheezy. The patient is on DuoNeb nebulized treatments around the clock, Perforomist and Pulmicort neb last treatment twice a day, IV Solu-Medrol and empiric antibiotic coverage with Levaquin. Tussionex is being utilized for cough. She has taken milk of magnesia for constipation and she is moving her bowels. Objective - Vital Signs Vital signs: Vital Signs Temp 97.8 F 09/25/16 07:00 Pulse 84 09/25/16 12:28 Resp 18 09/25/16 08:00 BP 122/76 09/25/16 07:00 Pulse Ox 87 L 09/25/16 07:00 Intake & Output 09/24/16 09/25/16 09/25/16 18:59 06:59 18:59 Weight 72.575 kg Other: # Voids 2 1 - Exam Head exam was generally normal. There was no scleral icterus or corneal arcus. Mucous membranes were moist.Neck was supple and without jugular venous distension, thyromegaly, or carotid bruits. Carotids were easily palpable bilaterally. There was no adenopathy. Lung sounds are diminished bilaterally and there is prolongation of the expiratory phase of breathing and scattered external wheezes throughout the lung sheppard bilaterally.Cardiac exam revealed the PMI to be normally situated and sized. The rhythm was regular and no extrasystoles were noted during several minutes of auscultation. The first and second heart sounds were normal and physiologic splitting of the second heart sound was noted. There were no murmurs, rubs, clicks, or gallops. Abdominal exam revealed normal bowel sounds. The abdomen was soft, non-tender, and without masses, organomegaly, or appreciable enlargement of the abdominal aorta.Examination of the extremities revealed easily palpable radial, femoral and pedal pulses. There was no cyanosis, clubbing or edema. - Labs CBC & Chem 7: 09/23/16 09:05 09/23/16 09:05 Labs: Abnormal Lab Results - Last 24 Hours (Table) 09/24/16 09/24/16 09/25/16 Range/Units 16:31 20:57 07:08 POC Glucose (mg/dL) 141 H 147 H 154 H (75-99) mg/dL 09/25/16 Range/Units 11:35 POC Glucose (mg/dL) 200 H (75-99) mg/dL Assessment and Plan Plan: `Impression 1 COPD exacerbation , still having active disease, shortness of breath and cough 2 dyspnea cough secondary to above 3 obesity 4 hyperlipidemia 5 mild degree of steroid-induced hyperglycemia 6 skeletal chest wall pain secondary to aggressive cough , on Tussionex and Wilkinson for pain control Plan Continue same treatment. We'll follow. May consider bronchoscopy if no improvement within next 24-48 hours.
[2016-09-25 16:35] LABS: Glucose,Whole Blood 135 mg/dL (75-99)
[2016-09-25 20:53] LABS: Glucose,Whole Blood 191 mg/dL (75-99)
[2016-09-25] MEDS: MELATONIN 3 MG TABLET PO SCH (20:56)
[2016-09-26] MEDS: methylPREDNISolone SOD SUCCI 125 MG/2 ML VIAL IV SCH ×5 (01:22→23:13)
[2016-09-26] MEDS: CHLORPHEN-HYDROcod 8-10mg/5ml 5 ML ORAL.SYRG PO SCH ×3 (01:28→23:18)
[2016-09-26] MEDS: HYDROcodone/APAP 5-325MG 1 EACH TAB PO PRN ×4 (01:34→21:11)
[2016-09-26 07:28] LABS: Glucose,Whole Blood 151 mg/dL (75-99)
[2016-09-26] MEDS: INSULIN LISPRO (humaLOG) 300 UNIT/3 ML VIAL SQ SCH ×4 (08:07→21:12)
[2016-09-26] MEDS: FLUoxetine HCL 20 MG CAP PO SCH (08:07)
[2016-09-26] MEDS: LORATADINE-PSEUDOEPH 5-120 MG 1 EACH TAB.ER.12H PO SCH ×2 (08:07→21:10)
[2016-09-26] MEDS: HEPARIN SODIUM,PORCINE 5,000 UNIT/ML 1 ML VIAL SQ SCH ×2 (08:07→21:10)
[2016-09-26] MEDS: BUDESONIDE 1 MG/2 ML NEBU INHALATION SCH ×2 (08:24→19:09)
[2016-09-26] MEDS: FORMOTEROL FUMARATE 20 MCG/2 ML NEBU INHALATION SCH ×2 (08:24→19:09)
[2016-09-26] MEDS: IPRATROPIUM-ALBUTEROL 3 ML NEB INHALATION SCH ×4 (08:24→19:11)
[2016-09-26 12:05] LABS: Glucose,Whole Blood 156 mg/dL (75-99)
[2016-09-26] MEDS: LEVOFLOXACIN 500 MG TAB PO SCH (12:33)
--- NOTE | 2016-09-26 14:20 | PN ---
Patient is admitted for COPD exacerbation. Patient has significant improvement compared to admission, although slow improvement. Patient may need to stay a day or two more. REVIEW OF SYSTEMS: CARDIOVASCULAR: No chest pain, no orthopnea, no PND, no palpitations. PULMONARY: Denied any shortness of breath. No cough or hemoptysis. GASTROINTESTINAL: No diarrhea, nausea or vomiting. No abdominal pain. Normoactive bowel sounds. NEUROLOGIC: No headaches, no weakness, no numbness. Medications were reviewed. PHYSICAL EXAMINATION: Temperature is 97.7, pulse of 88, respiratory rate of 20, blood pressure 130/79, saturating at 93% on 2 L of O2 nasal cannula. GENERAL: The patient is alert and oriented x3, not in any acute distress. Well developed, well nourished. HEENT: Pupils are round and equally reacting to light. EOMI. No scleral icterus. No conjunctival pallor. Normocephalic, atraumatic. No pharyngeal erythema. No thyromegaly. CARDIOVASCULAR: S1 and S2 present. No murmurs, rubs, or gallops. PULMONARY: Chest is clear to auscultation, no wheezing or crackles. ABDOMEN: Soft, nontender, nondistended, normoactive bowel sounds. No palpable organomegaly. MUSCULOSKELETAL: No joint swelling or deformity. EXTREMITIES: No cyanosis, clubbing, or pedal edema. NEUROLOGICAL: Gross neurological examination did not reveal any focal deficits. SKIN: No rashes. LABORATORY DATA: None available from today. ASSESSMENT AND PLAN: 1. Acute on chronic hypercapnic respiratory failure secondary to chronic obstructive pulmonary disease exacerbation, slow improvement. Continues with systemic steroids and inhalational treatments. 2. Obesity. 3. Hyperlipidemia. 4. Steroid-induced hyperglycemia. Continue with sliding scale insulin. 5. Musculoskeletal chest pain which proved secondary to cough. 6. Urinary stress incontinence. Patient may be able to go home tomorrow or day after, depending on her improvement.
[2016-09-26 17:11] LABS: Glucose,Whole Blood 161 mg/dL (75-99)
--- NOTE | 2016-09-26 17:18 | P.PN ---
Subjective Principal diagnosis: Acute exacerbation of COPD Pleasant 61-year-old female patient with known history of COPD. The patient used to live in [facility] and she is currently moved to [facility]. She had seen a brusher and shearer in her previous residence. The patient has not been on a maintenance inhalers. The last COPD exacerbation was in 2007, otherwise her only disease has been essentially stable and inactive. She got hospitalized 3 days ago for an acute COPD exacerbation. She had increased cough , chest tightness and wheezing. She had a chest x-ray that showed no acute abnormalities. Over the past 2-3 days the patient is still having same symptoms with some limited improvement with of her treatment which include a combination of bronchitis and systemic steroids. Her cough remains harsh. No significant sputum production. No hemoptysis. No pleurisy. She is on albuterol and Atrovent about treatments around the clock. She is also on Pulmicort Respules 1 mg twice a day. 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 She has more than [id number] smoking history and she quit smoking many years back. On 09/23/2016, the patient is still having shortness of breath chest tightness and wheezing. There has been limited improvement in her condition as of yesterday. We'll continue the bronchodilators. Continue the systemic steroids. Continued antibiotics. She is afebrile. She is hemodynamically stable. No change in mental status. Anticipate at least some improvement over the next 24-48 hours. On this patient is still suffering from a breathing. She still having chest tightness, significant cough on today's evaluation that is increased skeletal chest pains patient with cough and. Her wheezing in general is improved. She remains afebrile hemodynamically stable. She is on DuoNeb neb treatments around the clock, she is on a combination of Perforomist and Pulmicort neb last treatment [id number], she is on Tussionex for cough, she is on IV Solu-Medrol. The patient has had also empiric antibiotic coverage with Levaquin orally. The patient has not had any bowel movements and she is having issues with constipation. On 09/25/2016 the patient is somewhat improved compared to yesterday. The chest wall pain is improved as the patient is taking Hester for pain control. This is skeletal pain secondary to her frequent coughing episodes. The patient is afebrile. Still bronchospastic and wheezy. The patient is on DuoNeb nebulized treatments around the clock, Perforomist and Pulmicort neb last treatment twice a day, IV Solu-Medrol and empiric antibiotic coverage with Levaquin. Tussionex is being utilized for cough. She has taken milk of magnesia for constipation and she is moving her bowels. Patient was reevaluated today on 09/26/2016, patient is doing a bit better, but continues to cough and wheeze. No fever no chills no hemoptysis no chest pain. Objective - Vital Signs Vital signs: Vital Signs Temp 97.1 F L 09/26/16 15:00 Pulse 88 09/26/16 15:53 Resp 20 09/26/16 15:00 BP 131/64 09/26/16 15:00 Pulse Ox 96 09/26/16 15:00 Intake & Output 09/25/16 09/26/16 09/26/16 18:59 06:59 18:59 Intake Total 250 Balance 250 Intake: Oral 250 Other: Voiding Method Toilet # Voids 2 1 2 # Bowel Movements 1 0 - Exam Head exam was generally normal. There was no scleral icterus or corneal arcus. Mucous membranes were moist.Neck was supple and without jugular venous distension, thyromegaly, or carotid bruits. Carotids were easily palpable bilaterally. There was no adenopathy. Lung sounds are diminished bilaterally and there is prolongation of the expiratory phase of breathing and scattered external wheezes throughout the lung sheppard bilaterally.Cardiac exam revealed the PMI to be normally situated and sized. The rhythm was regular and no extrasystoles were noted during several minutes of auscultation. The first and second heart sounds were normal and physiologic splitting of the second heart sound was noted. There were no murmurs, rubs, clicks, or gallops. Abdominal exam revealed normal bowel sounds. The abdomen was soft, non-tender, and without masses, organomegaly, or appreciable enlargement of the abdominal aorta.Examination of the extremities revealed easily palpable radial, femoral and pedal pulses. There was no cyanosis, clubbing or edema. - Labs CBC & Chem 7: 09/23/16 09:05 09/23/16 09:05 Labs: Abnormal Lab Results - Last 24 Hours (Table) 09/25/16 09/26/16 09/26/16 Range/Units 20:52 07:26 12:01 POC Glucose (mg/dL) 191 H 151 H 156 H (75-99) mg/dL 09/26/16 Range/Units 17:06 POC Glucose (mg/dL) 161 H (75-99) mg/dL Assessment and Plan Plan: 1 COPD exacerbation , improving 2 dyspnea cough secondary to above 3 obesity 4 hyperlipidemia 5 mild degree of steroid-induced hyperglycemia 6 skeletal chest wall pain secondary to aggressive cough , on Tussionex and Hester for pain control Plan: Recommend continuing the same treatment plan, pulmonary-ball the patient is definitely better, improving but slowly, if not improved over the next couple of days, bronchoscopy could be considered. Patient is clearly not ready for discharge planning at this point. Time with Patient: Less than 30
[2016-09-26 21:01] LABS: Glucose,Whole Blood 226 mg/dL (75-99)
[2016-09-26] MEDS: MELATONIN 3 MG TABLET PO SCH (21:11)
[2016-09-26] MEDS: MAGNESIUM HYDROXIDE 2,400 MG/10 ML CUP PO PRN (21:22)
[2016-09-27] MEDS: methylPREDNISolone SOD SUCCI 125 MG/2 ML VIAL IV SCH ×3 (05:35→18:00)
[2016-09-27] MEDS: IPRATROPIUM-ALBUTEROL 3 ML NEB INHALATION PRN ×2 (05:38→23:14)
[2016-09-27 07:39] LABS: Glucose,Whole Blood 160 mg/dL (75-99)
[2016-09-27] MEDS: HEPARIN SODIUM,PORCINE 5,000 UNIT/ML 1 ML VIAL SQ SCH ×2 (08:03→21:11)
[2016-09-27] MEDS: INSULIN LISPRO (humaLOG) 300 UNIT/3 ML VIAL SQ SCH ×4 (08:03→21:17)
[2016-09-27] MEDS: LORATADINE-PSEUDOEPH 5-120 MG 1 EACH TAB.ER.12H PO SCH ×2 (08:04→21:11)
[2016-09-27] MEDS: FLUoxetine HCL 20 MG CAP PO SCH (08:04)
[2016-09-27] MEDS: HYDROcodone/APAP 5-325MG 1 EACH TAB PO PRN ×3 (08:12→21:17)
[2016-09-27] MEDS: BUDESONIDE 1 MG/2 ML NEBU INHALATION SCH ×2 (08:20→19:31)
[2016-09-27] MEDS: FORMOTEROL FUMARATE 20 MCG/2 ML NEBU INHALATION SCH ×2 (08:20→19:31)
[2016-09-27] MEDS: IPRATROPIUM-ALBUTEROL 3 ML NEB INHALATION SCH ×4 (08:21→19:33)
[2016-09-27 12:08] LABS: Glucose,Whole Blood 197 mg/dL (75-99)
[2016-09-27] MEDS: CHLORPHEN-HYDROcod 8-10mg/5ml 5 ML ORAL.SYRG PO SCH (12:35)
[2016-09-27] MEDS: LEVOFLOXACIN 500 MG TAB PO SCH (12:37)
[2016-09-27] MEDS: NYSTATIN 100,000 UNIT/ML SUSP 500,000 UNIT/5 ML CUP PO SCH ×3 (13:38→21:11)
--- NOTE | 2016-09-27 14:37 | P.PN ---
Subjective Principal diagnosis: Acute exacerbation of chronic obstructive pulmonary disease Pleasant 61-year-old female patient with known history of COPD. The patient used to live in [facility] and she is currently moved to [facility]. She had seen a internal combustion engineer in her previous residence. The patient has not been on a maintenance inhalers. The last COPD exacerbation was in 2007, otherwise her only disease has been essentially stable and inactive. She got hospitalized 3 days ago for an acute COPD exacerbation. She had increased cough , chest tightness and wheezing. She had a chest x-ray that showed no acute abnormalities. Over the past 2-3 days the patient is still having same symptoms with some limited improvement with of her treatment which include a combination of bronchitis and systemic steroids. Her cough remains harsh. No significant sputum production. No hemoptysis. No pleurisy. She is on albuterol and Atrovent about treatments around the clock. She is also on Pulmicort Respules 1 mg twice a day. 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 She has more than [id number] smoking history and she quit smoking many years back. On 09/23/2016, the patient is still having shortness of breath chest tightness and wheezing. There has been limited improvement in her condition as of yesterday. We'll continue the bronchodilators. Continue the systemic steroids. Continued antibiotics. She is afebrile. She is hemodynamically stable. No change in mental status. Anticipate at least some improvement over the next 24-48 hours. On this patient is still suffering from a breathing. She still having chest tightness, significant cough on today's evaluation that is increased skeletal chest pains patient with cough and. Her wheezing in general is improved. She remains afebrile hemodynamically stable. She is on DuoNeb neb treatments around the clock, she is on a combination of Perforomist and Pulmicort neb last treatment [id number], she is on Tussionex for cough, she is on IV Solu-Medrol. The patient has had also empiric antibiotic coverage with Levaquin orally. The patient has not had any bowel movements and she is having issues with constipation. On 09/25/2016 the patient is somewhat improved compared to yesterday. The chest wall pain is improved as the patient is taking Gallagher for pain control. This is skeletal pain secondary to her frequent coughing episodes. The patient is afebrile. Still bronchospastic and wheezy. The patient is on DuoNeb nebulized treatments around the clock, Perforomist and Pulmicort neb last treatment twice a day, IV Solu-Medrol and empiric antibiotic coverage with Levaquin. Tussionex is being utilized for cough. She has taken milk of magnesia for constipation and she is moving her bowels. Patient was reevaluated today on 09/26/2016, patient is doing a bit better, but continues to cough and wheeze. No fever no chills no hemoptysis no chest pain. The patient is seen again today 09/27/2016 in follow-up on the regular medical floor. She is awake and alert in no acute distress. She is improving daily but has been slow to progress. She still not quite back to her baseline. He has been afebrile. Maintaining good O2 saturations in the low 90s on 2 L/m per nasal cannula. Objective - Vital Signs Vital signs: Vital Signs Temp 97.9 F 09/27/16 07:00 Pulse 96 09/27/16 12:17 Resp 22 09/27/16 07:00 BP 143/84 09/27/16 07:00 Pulse Ox 90 L 09/27/16 07:00 Intake & Output 09/26/16 09/27/16 09/27/16 18:59 06:59 18:59 Intake Total 600 440 Balance 600 440 Intake: Oral 600 440 Other: Voiding Method Toilet Toilet Toilet # Voids 2 1 - Exam Head exam was generally normal. There was no scleral icterus or corneal arcus. Mucous membranes were moist.Neck was supple and without jugular venous distension, thyromegaly, or carotid bruits. Carotids were easily palpable bilaterally. There was no adenopathy. Lung sounds are diminished bilaterally and there is prolongation of the expiratory phase of breathing and scattered external wheezes throughout the lung sheppard bilaterally.Cardiac exam revealed the PMI to be normally situated and sized. The rhythm was regular and no extrasystoles were noted during several minutes of auscultation. The first and second heart sounds were normal and physiologic splitting of the second heart sound was noted. There were no murmurs, rubs, clicks, or gallops. Abdominal exam revealed normal bowel sounds. The abdomen was soft, non-tender, and without masses, organomegaly, or appreciable enlargement of the abdominal aorta.Examination of the extremities revealed easily palpable radial, femoral and pedal pulses. There was no cyanosis, clubbing or edema. - Labs CBC & Chem 7: 09/23/16 09:05 09/23/16 09:05 Labs: Abnormal Lab Results - Last 24 Hours (Table) 09/26/16 09/26/16 09/27/16 Range/Units 17:06 21:00 07:21 POC Glucose (mg/dL) 161 H 226 H 160 H (75-99) mg/dL 09/27/16 Range/Units 11:51 POC Glucose (mg/dL) 197 H (75-99) mg/dL Assessment and Plan Plan: Impression: 1 COPD exacerbation , improving 2 dyspnea cough secondary to above 3 obesity 4 hyperlipidemia 5 mild degree of steroid-induced hyperglycemia 6 skeletal chest wall pain secondary to aggressive cough , on Tussionex and Gallagher for pain control Plan: The patient was seen and evaluated by Dr. Rayo. We will continue with her current treatment. We'll increase her activity as tolerated. We'll continue to follow.
[2016-09-27 17:38] LABS: Glucose,Whole Blood 135 mg/dL (75-99)
--- NOTE | 2016-09-27 18:33 | P.PN ---
Subjective Date of service 09/27/2016. Progress note being dictated for Dr. Grigsby. Interval history: This 61-year-old female admitted with acute COPD exacerbation , slow to improve. Maintained on nebulized bronchodilators, IV steroids, Levaquin. Currently maintaining O2 sats of 90% on 2 L nasal cannula. Mild tachycardia. Nonproductive cough. Complains of "roughness, soreness" traveling down her throat-positive thrush evident on tongue. Afebrile. Denies chest pain, palpitations. Objective - Vital Signs Vital signs: Vital Signs Temp 97.7 F 09/27/16 15:00 Pulse 100 09/27/16 16:40 Resp 22 09/27/16 15:00 BP 137/79 09/27/16 15:00 Pulse Ox 90 L 09/27/16 15:00 Intake & Output 09/26/16 09/27/16 09/27/16 18:59 06:59 18:59 Intake Total 600 440 Balance 600 440 Weight 72.575 kg Intake: Oral 600 440 Other: Voiding Method Toilet Toilet Toilet # Voids 2 1 2 # Bowel Movements 1 - Exam PHYSICAL EXAM: VITAL SIGNS: As above GENERAL: [Sitting up in bed, no acute distress] HEENT: [Pupils equal conjunctiva normal, oral thrush NECK: [Supple, no JVD] RESPIRATORY EFFORT:[Normal] LUNGS: [Clear to auscultation, diminished bases with expiratory wheezes throughout, no rhonchi or crackles] CARDIOVASCULAR[regular S1 and S2, no murmurs rubs or gallops, no edema] GI: [Abdomen soft, nondistended, nontender, positive bowel sounds. No palpable organomegaly] PSYCH: [Alert and oriented -3, mood and affect normal.] NEURO: [Gross neurological examination did not reveal any focal deficits, strength and sensation grossly intact.] - Labs CBC & Chem 7: 09/23/16 09:05 09/23/16 09:05 Labs: Abnormal Lab Results - Last 24 Hours (Table) 09/26/16 09/27/16 09/27/16 Range/Units 21:00 07:21 11:51 POC Glucose (mg/dL) 226 H 160 H 197 H (75-99) mg/dL 09/27/16 Range/Units 17:29 POC Glucose (mg/dL) 135 H (75-99) mg/dL Assessment and Plan Plan: 1. Acute on chronic hypercapnic hypoxic respiratory failure secondary to COPD exacerbation, improving slowly. 2. [Obesity, BMI 29.3]. 3. [Hyperlipidemia]. 4. [Steroid-induced hyperglycemia]. 5. [Muscloskeletal chestwall pain secondary to harsh cough]. 6. [Urinary stress incontinence]. 7. [Oral candidiasis]. Plan: Continue on current medication regime, nebulized bronchodilators, steroids , Levaquin, monitoring and symptomatic treatment. Nystatin ordered for oral thrush. Potential Bronchoscopy being discussed by pulmonary. Increase ambulation as tolerated. Repeat labs ordered for a.m. Further recommendations to follow. Prognosis guarded. The impression and plan of care has been dictated as directed. : I performed a H&P examination of this patient and discussed the same with the dictator. I agree with the dictator's note. Any additional findings/opinions/ etc. will be noted.
[2016-09-27] MEDS: MELATONIN 3 MG TABLET PO SCH (21:11)
[2016-09-27 21:16] LABS: Glucose,Whole Blood 174 mg/dL (75-99)
[2016-09-28] MEDS: methylPREDNISolone SOD SUCCI 125 MG/2 ML VIAL IV SCH ×5 (00:46→23:59)
[2016-09-28] MEDS: CHLORPHEN-HYDROcod 8-10mg/5ml 5 ML ORAL.SYRG PO SCH ×3 (00:46→23:58)
[2016-09-28] MEDS: IPRATROPIUM-ALBUTEROL 3 ML NEB INHALATION PRN ×2 (02:52→13:37)
[2016-09-28] MEDS: HYDROcodone/APAP 5-325MG 1 EACH TAB PO PRN ×2 (03:12→11:47)
[2016-09-28] MEDS: IPRATROPIUM-ALBUTEROL 3 ML NEB INHALATION SCH ×4 (07:21→20:07)
[2016-09-28] MEDS: BUDESONIDE 1 MG/2 ML NEBU INHALATION SCH ×2 (07:21→20:07)
[2016-09-28] MEDS: FORMOTEROL FUMARATE 20 MCG/2 ML NEBU INHALATION SCH ×2 (07:21→20:07)
[2016-09-28 07:40] LABS: Glucose,Whole Blood 149 mg/dL (75-99)
[2016-09-28] MEDS: INSULIN LISPRO (humaLOG) 300 UNIT/3 ML VIAL SQ SCH ×4 (08:00→21:18)
[2016-09-28 09:30] LABS: Basophils % (A) 0 %; CH 30.8; CHCM 32.3; Eosinophils % (A) 0 %; HCT 43.6 % (34.0-46.0); HDW 2.08; Luc # (Auto) 0.04; Luc % (Auto) 0; Lymphocytes # (A) 0.3 k/uL (1.0-4.8); Lymphocytes % (A) 2 %; MCH 30.7 pg (25.0-35.0); MCV 95.9 fL (80.0-100.0); Mean Platelet Volume 7.3; Monocytes # (A) 0.3 k/uL (0-1.0); Monocytes % (A) 3 %; Neutrophils % (A) 95 %; RBC 4.54 m/uL (3.80-5.40); RDW 13.3 % (11.5-15.5); WBC 10.6 k/uL (3.8-10.6); WBC (Perox) 10.74
[2016-09-28 09:37] LABS: Anion Gap 11 mmol/L; Blood Urea Nitrogen 25 mg/dL (7-17); Calcium 9.4 mg/dL (8.4-10.2); Carbon Dioxide 25 mmol/L (22-30); Chloride 102 mmol/L (98-107); Glucose 172 mg/dL (74-99); Non-African American GFR(MDRD) >60 (>60 ml/min/1.73 sqM); Potassium 4.8 mmol/L (3.5-5.1); Sodium 138 mmol/L (137-145)
[2016-09-28] MEDS: HEPARIN SODIUM,PORCINE 5,000 UNIT/ML 1 ML VIAL SQ SCH ×2 (10:29→21:18)
[2016-09-28] MEDS: FLUoxetine HCL 20 MG CAP PO SCH (10:30)
[2016-09-28] MEDS: LORATADINE-PSEUDOEPH 5-120 MG 1 EACH TAB.ER.12H PO SCH ×2 (10:30→21:18)
[2016-09-28] MEDS: NYSTATIN 100,000 UNIT/ML SUSP 500,000 UNIT/5 ML CUP PO SCH ×4 (10:30→21:18)
[2016-09-28 12:00] LABS: Glucose,Whole Blood 147 mg/dL (75-99)
--- NOTE | 2016-09-28 14:12 | P.PN ---
Subjective Principal diagnosis: Acute exacerbation of chronic obstructive pulmonary disease Pleasant 61-year-old female patient with known history of COPD. The patient used to live in [facility] and she is currently moved to [facility]. She had seen a sausage maker in her previous residence. The patient has not been on a maintenance inhalers. The last COPD exacerbation was in 2007, otherwise her only disease has been essentially stable and inactive. She got hospitalized 3 days ago for an acute COPD exacerbation. She had increased cough , chest tightness and wheezing. She had a chest x-ray that showed no acute abnormalities. Over the past 2-3 days the patient is still having same symptoms with some limited improvement with of her treatment which include a combination of bronchitis and systemic steroids. Her cough remains harsh. No significant sputum production. No hemoptysis. No pleurisy. She is on albuterol and Atrovent about treatments around the clock. She is also on Pulmicort Respules 1 mg twice a day. 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 She has more than [id number] smoking history and she quit smoking many years back. On 09/23/2016, the patient is still having shortness of breath chest tightness and wheezing. There has been limited improvement in her condition as of yesterday. We'll continue the bronchodilators. Continue the systemic steroids. Continued antibiotics. She is afebrile. She is hemodynamically stable. No change in mental status. Anticipate at least some improvement over the next 24-48 hours. On this patient is still suffering from a breathing. She still having chest tightness, significant cough on today's evaluation that is increased skeletal chest pains patient with cough and. Her wheezing in general is improved. She remains afebrile hemodynamically stable. She is on DuoNeb neb treatments around the clock, she is on a combination of Perforomist and Pulmicort neb last treatment [id number], she is on Tussionex for cough, she is on IV Solu-Medrol. The patient has had also empiric antibiotic coverage with Levaquin orally. The patient has not had any bowel movements and she is having issues with constipation. On 09/25/2016 the patient is somewhat improved compared to yesterday. The chest wall pain is improved as the patient is taking [place] for pain control. This is skeletal pain secondary to her frequent coughing episodes. The patient is afebrile. Still bronchospastic and wheezy. The patient is on DuoNeb nebulized treatments around the clock, Perforomist and Pulmicort neb last treatment twice a day, IV Solu-Medrol and empiric antibiotic coverage with Levaquin. Tussionex is being utilized for cough. She has taken milk of magnesia for constipation and she is moving her bowels. Patient was reevaluated today on 09/26/2016, patient is doing a bit better, but continues to cough and wheeze. No fever no chills no hemoptysis no chest pain. The patient is seen again today 09/27/2016 in follow-up on the regular medical floor. She is awake and alert in no acute distress. She is improving daily but has been slow to progress. She still not quite back to her baseline. He has been afebrile. Maintaining good O2 saturations in the low 90s on 2 L/m per nasal cannula. The patient is seen again today in follow-up 09/28/2016 on the regular medical floor. She is awake and alert in no acute distress. The plan is for bronchoscopy with BAL today with Dr. Rayo. She states she is breathing easier today as compared to yesterday but has been slow to progress and still not quite back to her baseline. Sara afebrile. Maintaining good O2 saturations in the 90s on 2 L/m per nasal cannula. Objective - Vital Signs Vital signs: Vital Signs Temp 97.9 F 09/28/16 07:00 Pulse 104 H 09/28/16 13:48 Resp 22 09/28/16 07:00 BP 133/82 09/28/16 07:00 Pulse Ox 94 L 09/28/16 07:00 Intake & Output 09/27/16 09/28/16 09/28/16 18:59 06:59 18:59 Intake Total 440 240 Balance 440 240 Weight 72.575 kg Intake: Oral 440 240 Other: Voiding Method Toilet Toilet Toilet # Voids 2 1 # Bowel Movements 1 - Exam Head exam was generally normal. There was no scleral icterus or corneal arcus. Mucous membranes were moist.Neck was supple and without jugular venous distension, thyromegaly, or carotid bruits. Carotids were easily palpable bilaterally. There was no adenopathy. Lung sounds are diminished bilaterally and there is prolongation of the expiratory phase of breathing and scattered external wheezes throughout the lung sheppard bilaterally.Cardiac exam revealed the PMI to be normally situated and sized. The rhythm was regular and no extrasystoles were noted during several minutes of auscultation. The first and second heart sounds were normal and physiologic splitting of the second heart sound was noted. There were no murmurs, rubs, clicks, or gallops. Abdominal exam revealed normal bowel sounds. The abdomen was soft, non-tender, and without masses, organomegaly, or appreciable enlargement of the abdominal aorta.Examination of the extremities revealed easily palpable radial, femoral and pedal pulses. There was no cyanosis, clubbing or edema. - Labs CBC & Chem 7: 09/28/16 08:49 09/28/16 08:49 Labs: Abnormal Lab Results - Last 24 Hours (Table) 09/27/16 09/27/16 09/28/16 Range/Units 17:29 21:06 07:22 Neutrophils # (1.3-7.7) k/uL Lymphocytes # (1.0-4.8) k/uL BUN (7-17) mg/dL Glucose (74-99) mg/dL POC Glucose (mg/dL) 135 H 174 H 149 H (75-99) mg/dL 09/28/16 09/28/16 09/28/16 Range/Units 08:49 08:49 11:55 Neutrophils # 10.0 H (1.3-7.7) k/uL Lymphocytes # 0.3 L (1.0-4.8) k/uL BUN 25 H (7-17) mg/dL Glucose 172 H (74-99) mg/dL POC Glucose (mg/dL) 147 H (75-99) mg/dL Assessment and Plan Plan: Impression: 1 COPD exacerbation , improving 2 dyspnea cough secondary to above 3 obesity 4 hyperlipidemia 5 mild degree of steroid-induced hyperglycemia 6 skeletal chest wall pain secondary to aggressive cough , on Tussionex and [place] for pain control Plan: The patient was seen and evaluated by Dr. Rayo. We will continue with her current treatment. No plan for bronchoscopy with BAL today. We'll send samples to the lab for analysis. We'll continue to follow.
[2016-09-28] MEDS ORDERED: PROPOFOL 10 MG/ML 20 ML VIAL IV ONE (14:20)
[2016-09-28] MEDS ORDERED: LACTATED RINGERS 1,000 ML IV ONE (14:25)
[2016-09-28] MEDS: LEVOFLOXACIN 500 MG TAB PO SCH (16:23)
--- NOTE | 2016-09-28 17:20 | P.PN ---
Subjective Date of service 09/28/2016. Progress note being dictated for Dr. Grigsby. Interval history: This 61-year-old female admitted with acute COPD exacerbation , slow to improve. Maintained on nebulized bronchodilators, IV steroids, Levaquin. wheezing much improved, currently maintaining O2 sats in the 90s on 2 L nasal cannula. nonproductive cough. Mild tachycardia. NPO for bronchoscopy today. Afebrile. Denies chest pain, palpitations. Objective - Vital Signs Vital signs: Vital Signs Temp 98.5 F 09/28/16 15:00 Pulse 100 09/28/16 16:54 Resp 20 09/28/16 15:00 BP 105/67 09/28/16 15:00 Pulse Ox 91 L 09/28/16 15:00 Intake & Output 09/27/16 09/28/16 09/28/16 18:59 06:59 18:59 Intake Total 440 240 100 Balance 440 240 100 Weight 72.575 kg Intake: IV 100 Oral 440 240 Other: Voiding Method Toilet Toilet Toilet # Voids 2 1 2 # Bowel Movements 1 - Exam PHYSICAL EXAM: VITAL SIGNS: As above GENERAL: [Sitting up in bed, no acute distress] HEENT: [Pupils equal conjunctiva normal, oral thrush improving NECK: [Supple, no JVD] RESPIRATORY EFFORT:[Normal] LUNGS: [Clear to auscultation, diminished bases with fine bibasilar expiratory wheezes, no rhonchi or crackles] CARDIOVASCULAR[regular S1 and S2, no murmurs rubs or gallops, no edema] GI: [Abdomen soft, nondistended, nontender, positive bowel sounds. No palpable organomegaly] PSYCH: [Alert and oriented -3, mood and affect normal.] NEURO: [Gross neurological examination did not reveal any focal deficits, strength and sensation grossly intact.] - Labs CBC & Chem 7: 09/28/16 08:49 09/28/16 08:49 Labs: Abnormal Lab Results - Last 24 Hours (Table) 09/27/16 09/27/16 09/28/16 Range/Units 17:29 21:06 07:22 Neutrophils # (1.3-7.7) k/uL Lymphocytes # (1.0-4.8) k/uL BUN (7-17) mg/dL Glucose (74-99) mg/dL POC Glucose (mg/dL) 135 H 174 H 149 H (75-99) mg/dL 09/28/16 09/28/16 09/28/16 Range/Units 08:49 08:49 11:55 Neutrophils # 10.0 H (1.3-7.7) k/uL Lymphocytes # 0.3 L (1.0-4.8) k/uL BUN 25 H (7-17) mg/dL Glucose 172 H (74-99) mg/dL POC Glucose (mg/dL) 147 H (75-99) mg/dL Assessment and Plan Plan: 1. Acute on chronic hypercapnic hypoxic respiratory failure secondary to COPD exacerbation, improving slowly. 2. [Obesity, BMI 29.3]. 3. [Hyperlipidemia]. 4. [Steroid-induced hyperglycemia]. 5. [Muscloskeletal chestwall pain secondary to harsh cough]. 6. [Urinary stress incontinence]. 7. [Oral candidiasis]. Plan: Continue on current medication regime, nebulized bronchodilators, steroids , Levaquin, monitoring and symptomatic treatment. Bronchoscopy pending. Increase ambulation as tolerated. Repeat labs ordered for a.m. Further recommendations to follow. Prognosis guarded. The impression and plan of care has been dictated as directed. : I performed a H&P examination of this patient and discussed the same with the dictator. I agree with the dictator's note. Any additional findings/opinions/ etc. will be noted.
[2016-09-28 17:31] LABS: Glucose,Whole Blood 194 mg/dL (75-99)
[2016-09-28 19:13] LABS: RBC, Body Fluid 2150 /uL
[2016-09-28 20:36] LABS: Glucose,Whole Blood 159 mg/dL (75-99)
[2016-09-28] MEDS: MELATONIN 3 MG TABLET PO SCH (21:18)
--- NOTE | 2016-09-28 23:42 | PCN ---
DATE OF PROCEDURE: PROCEDURE: Bronchoscopy and random bronchial washing. PREOPERATIVE DIAGNOSIS: Persistent asthma and persistent cough, unresponsive to therapy. POSTOPERATIVE DIAGNOSIS: Purulent tracheobronchitis and persistent asthma symptoms. ANESTHESIA USED: Patient was given IV conscious sedation. Please refer to DIRECTOR OF MATERIALS documentation. PROCEDURE: Patient was prepared according to the protocol for bronchoscopy. She was placed in a supine position. We monitored during the procedure her oxygen saturations continuously. Blood pressure was intermittently monitored. Cardiac rhythm was also monitored continuously. After adequate IV conscious sedation, a few milliliters of lidocaine was instilled into the left naris. The bronchoscope was inserted through the left naris to the area of the vocal cords. There were significant purulent secretions noted around the vocal cords area, and these were suctioned. Lidocaine was applied over the vocal cords, and the bronchoscope was advanced further down. Thorough examination was done of the trachea, madelaine, right upper lobe, right middle lobe, right lower lobe, left upper lobe, lingula and left lower lobe. There was evidence of scattered purulent secretions noted to be thick in all areas of the lungs, especially in the carinal area, right lower lobe, left lower lobe, right middle lobe. All lobes were lavaged and washed until cleared of purulent secretions. Procedure was well tolerated. No evidence of any immediate complications. The specimen we obtained was sent for different diagnostic studies; mostly cultures.
[2016-09-29] MEDS: methylPREDNISolone SOD SUCCI 125 MG/2 ML VIAL IV SCH ×3 (06:03→17:52)
[2016-09-29 07:12] LABS: Glucose,Whole Blood 170 mg/dL (75-99)
[2016-09-29] MEDS: FORMOTEROL FUMARATE 20 MCG/2 ML NEBU INHALATION SCH ×2 (08:10→19:10)
[2016-09-29] MEDS: BUDESONIDE 1 MG/2 ML NEBU INHALATION SCH ×2 (08:10→19:10)
[2016-09-29] MEDS: IPRATROPIUM-ALBUTEROL 3 ML NEB INHALATION SCH ×4 (08:10→19:10)
[2016-09-29] MEDS: HEPARIN SODIUM,PORCINE 5,000 UNIT/ML 1 ML VIAL SQ SCH ×2 (08:33→21:09)
[2016-09-29] MEDS: NYSTATIN 100,000 UNIT/ML SUSP 500,000 UNIT/5 ML CUP PO SCH ×4 (08:34→21:10)
[2016-09-29] MEDS: LORATADINE-PSEUDOEPH 5-120 MG 1 EACH TAB.ER.12H PO SCH ×2 (08:34→21:10)
[2016-09-29] MEDS: FLUoxetine HCL 20 MG CAP PO SCH (08:34)
[2016-09-29] MEDS: INSULIN LISPRO (humaLOG) 300 UNIT/3 ML VIAL SQ SCH ×4 (08:34→21:10)
[2016-09-29] MEDS: HYDROcodone/APAP 5-325MG 1 EACH TAB PO PRN (08:42)
[2016-09-29 11:14] LABS: Glucose,Whole Blood 233 mg/dL (75-99)
[2016-09-29] MEDS: CHLORPHEN-HYDROcod 8-10mg/5ml 5 ML ORAL.SYRG PO SCH (11:30)
[2016-09-29] MEDS: LEVOFLOXACIN 500 MG TAB PO SCH (11:31)
--- NOTE | 2016-09-29 13:49 | P.PN ---
Subjective Principal diagnosis: Acute exacerbation of chronic obstructive pulmonary disease Pleasant 61-year-old female patient with known history of COPD. The patient used to live in [facility] and she is currently moved to [facility]. She had seen a crossing tender in her previous residence. The patient has not been on a maintenance inhalers. The last COPD exacerbation was in 2007, otherwise her only disease has been essentially stable and inactive. She got hospitalized 3 days ago for an acute COPD exacerbation. She had increased cough , chest tightness and wheezing. She had a chest x-ray that showed no acute abnormalities. Over the past 2-3 days the patient is still having same symptoms with some limited improvement with of her treatment which include a combination of bronchitis and systemic steroids. Her cough remains harsh. No significant sputum production. No hemoptysis. No pleurisy. She is on albuterol and Atrovent about treatments around the clock. She is also on Pulmicort Respules 1 mg twice a day. 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 She has more than [id number]-ozed smoking history and she quit smoking many years back. On 09/23/2016, the patient is still having shortness of breath chest tightness and wheezing. There has been limited improvement in her condition as of yesterday. We'll continue the bronchodilators. Continue the systemic steroids. Continued antibiotics. She is afebrile. She is hemodynamically stable. No change in mental status. Anticipate at least some improvement over the next 24-48 hours. On this patient is still suffering from a breathing. She still having chest tightness, significant cough on today's evaluation that is increased skeletal chest pains patient with cough and. Her wheezing in general is improved. She remains afebrile hemodynamically stable. She is on DuoNeb neb treatments around the clock, she is on a combination of Perforomist and Pulmicort neb last treatment [id number], she is on Tussionex for cough, she is on IV Solu-Medrol. The patient has had also empiric antibiotic coverage with Levaquin orally. The patient has not had any bowel movements and she is having issues with constipation. On 09/25/2016 the patient is somewhat improved compared to yesterday. The chest wall pain is improved as the patient is taking [place] for pain control. This is skeletal pain secondary to her frequent coughing episodes. The patient is afebrile. Still bronchospastic and wheezy. The patient is on DuoNeb nebulized treatments around the clock, Perforomist and Pulmicort neb last treatment twice a day, IV Solu-Medrol and empiric antibiotic coverage with Levaquin. Tussionex is being utilized for cough. She has taken milk of magnesia for constipation and she is moving her bowels. Patient was reevaluated today on 09/26/2016, patient is doing a bit better, but continues to cough and wheeze. No fever no chills no hemoptysis no chest pain. The patient is seen again today 09/27/2016 in follow-up on the regular medical floor. She is awake and alert in no acute distress. She is improving daily but has been slow to progress. She still not quite back to her baseline. He has been afebrile. Maintaining good O2 saturations in the low 90s on 2 L/m per nasal cannula. The patient is seen again today in follow-up 09/28/2016 on the regular medical floor. She is awake and alert in no acute distress. The plan is for bronchoscopy with BAL today with Dr. Rayo. She states she is breathing easier today as compared to yesterday but has been slow to progress and still not quite back to her baseline. Remains afebrile. Maintaining good O2 saturations in the 90s on 2 L/m per nasal cannula. The patient is seen again today 09/29/2016 in follow-up on the regular medical floor. She is awake and alert in no acute distress. She did undergo bronchoscopy with BAL yesterday. Fluid analysis and cytology are both pending. He is breathing easier today as compared to yesterday. She still feels she is not quite back to her baseline prior to her admission. Objective - Vital Signs Vital signs: Vital Signs Temp 98.1 F 09/29/16 07:00 Pulse 87 09/29/16 12:01 Resp 19 09/29/16 07:00 BP 141/82 09/29/16 07:00 Pulse Ox 93 L 09/29/16 08:13 Intake & Output 09/28/16 09/29/16 09/29/16 18:59 06:59 18:59 Intake Total 100 240 Balance 100 240 Intake: IV 100 Oral 240 Other: Voiding Method Toilet Toilet # Voids 2 2 # Bowel Movements 0 - Exam Head exam was generally normal. There was no scleral icterus or corneal arcus. Mucous membranes were moist.Neck was supple and without jugular venous distension, thyromegaly, or carotid bruits. Carotids were easily palpable bilaterally. There was no adenopathy. Lung sounds are diminished bilaterally and there is prolongation of the expiratory phase of breathing and scattered external wheezes throughout the lung sheppard bilaterally.Cardiac exam revealed the PMI to be normally situated and sized. The rhythm was regular and no extrasystoles were noted during several minutes of auscultation. The first and second heart sounds were normal and physiologic splitting of the second heart sound was noted. There were no murmurs, rubs, clicks, or gallops. Abdominal exam revealed normal bowel sounds. The abdomen was soft, non-tender, and without masses, organomegaly, or appreciable enlargement of the abdominal aorta.Examination of the extremities revealed easily palpable radial, femoral and pedal pulses. There was no cyanosis, clubbing or edema. - Labs CBC & Chem 7: 09/28/16 08:49 09/28/16 08:49 Labs: Abnormal Lab Results - Last 24 Hours (Table) 09/28/16 09/28/16 09/29/16 Range/Units 17:18 20:34 06:55 POC Glucose (mg/dL) 194 H 159 H 170 H (75-99) mg/dL 09/29/16 Range/Units 11:10 POC Glucose (mg/dL) 233 H (75-99) mg/dL Microbiology - Last 24 Hours (Table) 09/28/16 14:38 Gram Stain - Preliminary Bronchial Washings - Left Bronchial Washings Culture - Preliminary 09/28/16 14:38 Acid Fast Bacilli Culture - Preliminary Bronchial Washings - Left 09/28/16 14:38 Fungal Culture - Preliminary Bronchial Washings - Left Assessment and Plan Plan: Impression: 1 COPD exacerbation , improving 2 dyspnea cough secondary to above 3 obesity 4 hyperlipidemia 5 mild degree of steroid-induced hyperglycemia 6 skeletal chest wall pain secondary to aggressive cough , on Tussionex and [place] for pain control Plan: The patient was seen and evaluated by Dr. Rayo. Status post bronchoscopy with BAL yesterday. Results of which are pending. The patient could be discharged home from the pulmonary standpoint. She should follow-up with Dr. Rayo next week in the office go over test results and make further recommendations for maintenance medications. She'll complete her course of antibiotics. Complete a prednisone taper. Continue with bronchodilators.
[2016-09-29 16:40] LABS: Glucose,Whole Blood 134 mg/dL (75-99)
--- NOTE | 2016-09-29 17:30 | P.PN ---
Subjective Date of service 09/29/2016. Progress note being dictated for Dr. Grigsby. Interval history: This 61-year-old female admitted with acute COPD exacerbation. Underwent bronchoscopy yesterday, reporting purulent tracheobronchitis, persistent asthma symptoms. Tolerated procedure well. Cultures/cytology pending. Maintained on nebulized bronchodilators, IV steroids, Levaquin. Minimal wheezing, better air entry. Maintaining O2 sats of 91% on room air at rest, 85% on room air after ambulation. Afebrile. Denies chest pain, palpitations. Objective - Vital Signs Vital signs: Vital Signs Temp 98.2 F 09/29/16 15:00 Pulse 86 09/29/16 15:51 Resp 19 09/29/16 15:00 BP 151/86 09/29/16 15:00 Pulse Ox 91 L 09/29/16 15:32 Intake & Output 09/28/16 09/29/16 09/29/16 18:59 06:59 18:59 Intake Total 100 240 Balance 100 240 Intake: IV 100 Oral 240 Other: Voiding Method Toilet Toilet # Voids 2 2 2 # Bowel Movements 0 0 - Exam PHYSICAL EXAM: VITAL SIGNS: As above GENERAL: [Sitting up in bed, no acute distress] HEENT: [Pupils equal conjunctiva normal, oral thrush improving NECK: [Supple, no JVD] RESPIRATORY EFFORT:[Normal] LUNGS: [Clear to auscultation, diminished bases with fine right basilar expiratory wheeze, no rhonchi or crackles] CARDIOVASCULAR[regular S1 and S2, no murmurs rubs or gallops, no edema] GI: [Abdomen soft, nondistended, nontender, positive bowel sounds. No palpable organomegaly] PSYCH: [Alert and oriented -3, mood and affect normal.] NEURO: [Gross neurological examination did not reveal any focal deficits, strength and sensation grossly intact.] Microbiology 09/28/16 14:38 Bronchial Washings - Left Gram Stain - Preliminary 09/28/16 14:38 Bronchial Washings - Left Bronchial Washings Culture - Preliminary 09/28/16 14:38 Bronchial Washings - Left Acid Fast Bacilli Culture - Preliminary 09/28/16 14:38 Bronchial Washings - Left Fungal Culture - Preliminary 09/18/16 13:05 Urine,Clean Catch Urine Culture - Final - Labs CBC & Chem 7: 09/28/16 08:49 09/28/16 08:49 Labs: Abnormal Lab Results - Last 24 Hours (Table) 09/28/16 09/28/16 09/29/16 Range/Units 17:18 20:34 06:55 POC Glucose (mg/dL) 194 H 159 H 170 H (75-99) mg/dL 09/29/16 09/29/16 Range/Units 11:10 16:38 POC Glucose (mg/dL) 233 H 134 H (75-99) mg/dL Microbiology - Last 24 Hours (Table) 09/28/16 14:38 Gram Stain - Preliminary Bronchial Washings - Left Bronchial Washings Culture - Preliminary 09/28/16 14:38 Acid Fast Bacilli Culture - Preliminary Bronchial Washings - Left 09/28/16 14:38 Fungal Culture - Preliminary Bronchial Washings - Left Assessment and Plan Plan: 1. Acute on chronic hypercapnic hypoxic respiratory failure secondary to COPD exacerbation, improving. 2. [Obesity, BMI 29.3]. 3. [Hyperlipidemia]. 4. [Steroid-induced hyperglycemia]. 5. [Muscloskeletal chestwall pain secondary to harsh cough]. 6. [Urinary stress incontinence]. 7. [Oral candidiasis]. Plan: Continue on current medication regime, nebulized bronchodilators, steroids , Levaquin, monitoring and symptomatic treatment. Bronchoscopy cultures/ cytology pending. The plan for discharge home today but patient continues to require oxygen, O2 sat on room air after ambulation 85%. We'll keep overnight and attempt to wean off oxygen by tomorrow. Discharge planning in progress for tomorrow. The impression and plan of care has been dictated as directed. : I performed a H&P examination of this patient and discussed the same with the dictator. I agree with the dictator's note. Any additional findings/opinions/ etc. will be noted.
[2016-09-29 21:06] LABS: Glucose,Whole Blood 189 mg/dL (75-99)
[2016-09-29] MEDS: MELATONIN 3 MG TABLET PO SCH (21:10)
[2016-09-30] MEDS: CHLORPHEN-HYDROcod 8-10mg/5ml 5 ML ORAL.SYRG PO SCH ×2 (00:33→11:26)
[2016-09-30] MEDS: methylPREDNISolone SOD SUCCI 125 MG/2 ML VIAL IV SCH ×3 (00:34→11:21)
[2016-09-30 06:52] LABS: Glucose,Whole Blood 170 mg/dL (75-99)
[2016-09-30 07:36] VITALS: BP 144/85; RESP 18; TEMP 97.7
[2016-09-30] MEDS: INSULIN LISPRO (humaLOG) 300 UNIT/3 ML VIAL SQ SCH (07:51)
[2016-09-30] MEDS: HEPARIN SODIUM,PORCINE 5,000 UNIT/ML 1 ML VIAL SQ SCH (07:52)
[2016-09-30] MEDS: NYSTATIN 100,000 UNIT/ML SUSP 500,000 UNIT/5 ML CUP PO SCH (07:52)
[2016-09-30] MEDS: LORATADINE-PSEUDOEPH 5-120 MG 1 EACH TAB.ER.12H PO SCH (07:52)
[2016-09-30] MEDS: FLUoxetine HCL 20 MG CAP PO SCH (07:52)
[2016-09-30] MEDS: FORMOTEROL FUMARATE 20 MCG/2 ML NEBU INHALATION SCH (08:41)
[2016-09-30] MEDS: BUDESONIDE 1 MG/2 ML NEBU INHALATION SCH (08:41)
[2016-09-30] MEDS: IPRATROPIUM-ALBUTEROL 3 ML NEB INHALATION SCH ×2 (08:41→11:56)
[2016-09-30 10:09] VITALS: PULSE 96
[2016-09-30] MEDS: LEVOFLOXACIN 500 MG TAB PO SCH (11:25)
[2016-09-30 11:43] LABS: Glucose,Whole Blood 213 mg/dL (75-99)
--- NOTE | 2016-09-30 13:51 | P.PN ---
Subjective Principal diagnosis: Acute exacerbation of chronic obstructive pulmonary disease Pleasant 61-year-old female patient with known history of COPD. The patient used to live in [facility] and she is currently moved to [facility]. She had seen a roof technician in her previous residence. The patient has not been on a maintenance inhalers. The last COPD exacerbation was in 2007, otherwise her only disease has been essentially stable and inactive. She got hospitalized 3 days ago for an acute COPD exacerbation. She had increased cough , chest tightness and wheezing. She had a chest x-ray that showed no acute abnormalities. Over the past 2-3 days the patient is still having same symptoms with some limited improvement with of her treatment which include a combination of bronchitis and systemic steroids. Her cough remains harsh. No significant sputum production. No hemoptysis. No pleurisy. She is on albuterol and Atrovent about treatments around the clock. She is also on Pulmicort Respules 1 mg twice a day. 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 She has more than [id number] smoking history and she quit smoking many years back. On 09/23/2016, the patient is still having shortness of breath chest tightness and wheezing. There has been limited improvement in her condition as of yesterday. We'll continue the bronchodilators. Continue the systemic steroids. Continued antibiotics. She is afebrile. She is hemodynamically stable. No change in mental status. Anticipate at least some improvement over the next 24-48 hours. On this patient is still suffering from a breathing. She still having chest tightness, significant cough on today's evaluation that is increased skeletal chest pains patient with cough and. Her wheezing in general is improved. She remains afebrile hemodynamically stable. She is on DuoNeb neb treatments around the clock, she is on a combination of Perforomist and Pulmicort neb last treatment [id number], she is on Tussionex for cough, she is on IV Solu-Medrol. The patient has had also empiric antibiotic coverage with Levaquin orally. The patient has not had any bowel movements and she is having issues with constipation. On 09/25/2016 the patient is somewhat improved compared to yesterday. The chest wall pain is improved as the patient is taking Hickory for pain control. This is skeletal pain secondary to her frequent coughing episodes. The patient is afebrile. Still bronchospastic and wheezy. The patient is on DuoNeb nebulized treatments around the clock, Perforomist and Pulmicort neb last treatment twice a day, IV Solu-Medrol and empiric antibiotic coverage with Levaquin. Tussionex is being utilized for cough. She has taken milk of magnesia for constipation and she is moving her bowels. Patient was reevaluated today on 09/26/2016, patient is doing a bit better, but continues to cough and wheeze. No fever no chills no hemoptysis no chest pain. The patient is seen again today 09/27/2016 in follow-up on the regular medical floor. She is awake and alert in no acute distress. She is improving daily but has been slow to progress. She still not quite back to her baseline. He has been afebrile. Maintaining good O2 saturations in the low 90s on 2 L/m per nasal cannula. The patient is seen again today in follow-up 09/28/2016 on the regular medical floor. She is awake and alert in no acute distress. The plan is for bronchoscopy with BAL today with Dr. Rayo. She states she is breathing easier today as compared to yesterday but has been slow to progress and still not quite back to her baseline. Remains afebrile. Maintaining good O2 saturations in the 90s on 2 L/m per nasal cannula. The patient is seen again today 09/29/2016 in follow-up on the regular medical floor. She is awake and alert in no acute distress. She did undergo bronchoscopy with BAL yesterday. Fluid analysis and cytology are both pending. He is breathing easier today as compared to yesterday. She still feels she is not quite back to her baseline prior to her admission. The patient was seen again today 09/30/2016 in follow-up. She is doing quite a bit better. She denies any worsening shortness of breath. Her cough has subsided. She is anxious to go home. Objective - Vital Signs Vital signs: Vital Signs Temp 97.7 F 09/30/16 07:00 Pulse 96 09/30/16 09:02 Resp 18 09/30/16 07:00 BP 144/85 09/30/16 07:00 Pulse Ox 90 L 09/30/16 09:23 Intake & Output 09/29/16 09/30/16 09/30/16 18:59 06:59 18:59 Other: Voiding Method Toilet # Voids 2 1 # Bowel Movements 0 - Exam Head exam was generally normal. There was no scleral icterus or corneal arcus. Mucous membranes were moist.Neck was supple and without jugular venous distension, thyromegaly, or carotid bruits. Carotids were easily palpable bilaterally. There was no adenopathy. Lung sounds are diminished bilaterally and there is prolongation of the expiratory phase of breathing and scattered external wheezes throughout the lung sheppard bilaterally.Cardiac exam revealed the PMI to be normally situated and sized. The rhythm was regular and no extrasystoles were noted during several minutes of auscultation. The first and second heart sounds were normal and physiologic splitting of the second heart sound was noted. There were no murmurs, rubs, clicks, or gallops. Abdominal exam revealed normal bowel sounds. The abdomen was soft, non-tender, and without masses, organomegaly, or appreciable enlargement of the abdominal aorta.Examination of the extremities revealed easily palpable radial, femoral and pedal pulses. There was no cyanosis, clubbing or edema. - Labs CBC & Chem 7: 09/28/16 08:49 09/28/16 08:49 Labs: Abnormal Lab Results - Last 24 Hours (Table) 09/29/16 09/29/16 09/30/16 Range/Units 16:38 20:43 06:49 POC Glucose (mg/dL) 134 H 189 H 170 H (75-99) mg/dL 09/30/16 Range/Units 11:40 POC Glucose (mg/dL) 213 H (75-99) mg/dL Microbiology - Last 24 Hours (Table) 09/28/16 14:38 Acid Fast Bacilli Smear - Final Bronchial Washings - Left Acid Fast Bacilli Culture - Preliminary Assessment and Plan Plan: Impression: 1 COPD exacerbation , improving 2 dyspnea cough secondary to above 3 obesity 4 hyperlipidemia 5 mild degree of steroid-induced hyperglycemia 6 skeletal chest wall pain secondary to aggressive cough , on Tussionex and Hickory for pain control Plan: The patient was seen and evaluated by Dr. Rayo. Status post bronchoscopy with BAL. Results of which are pending. The patient could be discharged home from the pulmonary standpoint. She should follow-up with Dr. Rayo next week in the office go over test results and make further recommendations for maintenance medications. She'll complete her course of antibiotics. Complete a prednisone taper. Continue with bronchodilators. She is encouraged to call sooner with any recurrence of symptoms or other questions or concerns.
--- NOTE | 2016-10-02 23:10 | P.DS ---
Providers Date of admission: 09/18/16 14:34 Expected date of discharge: 09/30/16 Attending physician: Surinder Grigsby Consults: 09/21/16 14:20 Consult Physician Routine Consulting Provider: Abigail Brower Consult Reason/Comments: COPD Do you want consulting provider notified?: Yes Dr. Rayo,pulmonary Primary care physician: Stated [facility] Course: Final Diagnoses: 1. Acute on chronic hypercapnic hypoxic respiratory failure secondary to COPD exacerbation, improving. 2. [Obesity, BMI 29.3]. 3. [Hyperlipidemia]. 4. [Steroid-induced hyperglycemia]. 5. [Muscloskeletal chestwall pain secondary to harsh cough]. 6. [Urinary stress incontinence]. 7. [Oral candidiasis]. Hospital course: This is a 61-year-old female admitted with acute COPD exacerbation and multiple other medical issues. Evaluated by pulmonary, Dr. Brower & Dr. Rayo. Maintained on nebulized bronchodilators, IV steroids, Levaquin. Slow improvement. Underwent bronchoscopy with Dr. Rayo, cytology reported no malignant cells . Weaned off of oxygen. Significant clinical improvement. Patient cleared for discharge by pulmonary. Patient is being discharged home in a stable condition with guarded prognosis. Microbiology 09/28/16 14:38 Bronchial Washings - Left Gram Stain - Final 09/28/16 14:38 Bronchial Washings - Left Bronchial Washings Culture - Final Corynebacterium striatum 09/28/16 14:38 Bronchial Washings - Left Acid Fast Bacilli Smear - Final 09/28/16 14:38 Bronchial Washings - Left Acid Fast Bacilli Culture - Preliminary 09/28/16 14:38 Bronchial Washings - Left Fungal Culture - Preliminary 09/18/16 13:05 Urine,Clean Catch Urine Culture - Final The impression and plan of care has been dictated as directed. : I performed a H&P examination of this patient and discussed the same with the dictator. I agree with the dictator's note. Any additional findings/opinions/ etc. will be noted. Patient Condition at Discharge: Stable Plan - Discharge Summary New Discharge Prescriptions: ALPRAZolam [Xanax] 0.25 mg PO Q8H PRN #1 tab PRN Reason: Anxiety Budesonide-Formot 160-4.5 Mcg [Symbicort 160-4.5 Mcg Inhaler] 2 puff INHALATION BID #1 inhaler Levofloxacin [Levaquin] 500 mg PO 1200 #6 tab Montelukast [Singulair] 10 mg PO HS #1 tab Nystatin 100,000 Unit/ml Susp [Mycostatin Oral Susp] 500,000 unit PO QID #24 cup predniSONE 10 mg PO DIRECTED #1 tab Discharge Medication List Calcium Carbonate [Calcium] 600 mg PO DAILY 09/18/16 [History] FLUoxetine HCL [PROzac] 40 mg PO DAILY 09/18/16 [History] Multivitamins, Thera [Multivitamin (formulary)] 1 tab PO DAILY 09/18/16 [History ] Simvastatin Unknown Dose 20 mg PO HS 09/18/16 [History] ALPRAZolam [Xanax] 0.25 mg PO Q8H PRN #1 tab 09/30/16 [Rx] Budesonide-Formot 160-4.5 Mcg [Symbicort 160-4.5 Mcg Inhaler] 2 puff INHALATION BID #1 inhaler 09/30/16 [Rx] Ipratropium-Albuterol Nebulize [Duoneb 0.5 mg-3 mg/3 ml Soln] 3 ml INHALATION Q4H PRN #0 ampul.neb 09/30/16 [Rx] Ipratropium-Albuterol Nebulize [Duoneb 0.5 mg-3 mg/3 ml Soln] 3 ml INHALATION RT -QID ampul.neb 09/30/16 [Rx] Levofloxacin [Levaquin] 500 mg PO 1200 #6 tab 09/30/16 [Rx] Montelukast [Singulair] 10 mg PO HS #1 tab 09/30/16 [Rx] Nystatin 100,000 Unit/ml Susp [Mycostatin Oral Susp] 500,000 unit PO QID #24 cup 09/30/16 [Rx] predniSONE 10 mg PO DIRECTED #1 tab 09/30/16 [Rx] Follow up Appointment(s)/Referral(s): Maryjane Rayo MD [STAFF PHYSICIAN] - 10/13/16 11:00 am David Jacques MD [STAFF PHYSICIAN] - 3 Days Ambulatory/Diagnostic Orders: Complete Blood Count w/diff [LAB.AMB] Time Frame: 3 Days, Location: Determined By Patient Patient Instructions/Handouts: COPD (Chronic Obstructive Pulmonary Disease) (DC ) Activity/Diet/Wound Care/Special Instructions: Nebulizer from [facility] (#[phone]) O2 Sat on RA after ambulation 90% Low fat diet. Discharge Disposition: HOME SELF-CARE
--- NOTE | 2016-10-20 06:37 | PN ---
DATE OF SERVICE: 09/22/2016 ATTENDING NOTE: This patient examined by me on 09/22/16. I reviewed the note of my nurse practitioner, Ms. Vaughn, and discussed with her and agree with the same. Patient presented with COPD exacerbation. The patient has bit of a cough, no sputum. Had some shortness of breath. On examination, afebrile, blood pressure 133/92, pulse ox 94% on 2 L. RESPIRATORY: Effort increased. LUNGS: Some decreased breath sounds. Expiratory wheezing. CARDIOVASCULAR: First and second sounds normal. PSYCH: Alert and oriented x3. ASSESSMENT: 1. Acute chronic obstructive pulmonary disease exacerbation, possibly viral pneumonia in the right middle lobe, present on admission. 2. Sleep deprivation, chronic. 3. Acute sinusitis. PLAN: Continued on nebulized bronchodilators, steroids, antibiotics. Claritin D has been added. Will follow.
--- NOTE | 2016-10-20 23:01 | PN ---
DATE OF SERVICE: 09/19/2016 ATTENDING NOTE: This patient was seen and examined by me on 09/19/16. I reviewed the note of my nurse practitioner Ms. Vaughn. Discussed and agree with the same. Patient was admitted with COPD exacerbation, possibly with viral pneumonitis. Patient is feeling slightly better today. On examination, afebrile. Respiration 18. Blood pressure 118/58, pulse ox 93% on 2 L. Lying in bed. Tired-appearing. RESPIRATORY: Decreased breath sounds. Prolonged expiration. Some wheezing. CARDIOVASCULAR: First and second seconds normal. Anxious. ASSESSMENT: 1. Acute chronic obstructive pulmonary disease exacerbation possibly due to viral pneumonitis in the right middle lobe. 2. Osteoarthritis. 3. Possible acute sinusitis. PLAN: Continue with nebulized bronchodilators, IV steroids at 40 mg q.8.
--- NOTE | 2016-10-20 23:57 | PN ---
DATE OF SERVICE: 09/20/2016 ATTENDING NOTE: This patient was seen and examined by me on 09/20/16. I reviewed the notes of my nurse practitioner, Ms. Vaughn, discussed with her and agreed with the same. Patient presented with acute COPD exacerbation, possible right middle lobe viral pneumonia. Sputum production is coming down. Some achiness in the throat, neck. Some shortness of breath still present. Some cough with yellow sputum produced. On examination, afebrile. Blood pressure 139/65, pulse ox 92% on 2 L. Patient is lying in bed, tired-appearing. Respiratory effort increased. LUNGS: Decreased breath sounds. Prolonged expiration and wheezing. PSYCH: Slightly anxious. ASSESSMENT: 1. Acute severe chronic obstructive pulmonary disease exacerbation, possibly viral pneumonitis, slow to respond. 2. Acute sinusitis possibly; given Claritin D. PLAN: Continue bronchodilators, IV steroids, and follow.
--- NOTE | 2016-10-21 07:19 | PN ---
DATE OF SERVICE: 09/21/2016 ATTENDING NOTE: This patient was seen and examined by me on 09/21/2016. I reviewed the note of my nurse practitioner, Ms Vaughn. I discussed and agreed with the same. Patient admitted with COPD exacerbation. Still got a cough. No sputum. Some pain with coughing. Did not sleep too well. On examination, blood pressure 177/84, pulse ox of 98% on 2 liters. LUNGS: Decreased breath sounds. Prolonged expiration and wheezing. CARDIOVASCULAR: First and second sounds normal. No edema. PSYCH: Slightly anxious-appearing. ASSESSMENT: 1. This is an acute chronic obstructive pulmonary disease exacerbation probably due to viral pneumonia and right middle lobe, slow to respond. 2. Acute sinusitis. Patient is put on Claritin-D. PLAN: Continue current medication and treatment plan including ( ) steroids and nebulized Pulmicort.
--- NOTE | 2016-10-21 07:38 | PN ---
DATE OF SERVICE: 09/23/2016 ATTENDING NOTE: This patient was seen and examined by me. I reviewed the note of my nurse practitioner, Ms. Vaughn. Discussed and agreed. Patient admitted with COPD exacerbation, probably right viral pneumonia. Patient is still short of breath at rest and some nonproductive cough. Tired. Anxious. On examination, afebrile, blood pressure 140/74, pulse ox 90% on 3 liters. Sitting up in bed. RESPIRATORY: Effort increased. LUNGS: Decreased breath sounds. Prolonged expiration and wheezing. CARDIOVASCULAR: First and second sounds normal. No edema. PSYCH: Anxiety is present. ASSESSMENT: 1. Acute chronic obstructive pulmonary disease exacerbation. \ 2. Suspect right-sided viral pneumonitis. 3. Acute sinusitis on Claritin-D. PLAN: Current medication and treatment plan including nebulized bronchodilator, IV steroids, antibiotic in the form of Levaquin.
== END 2016-09-30 12:18 | disposition home or self-care (01) | DRG 190 ==
LOC: EC 12:16 → 4MS4W 14:34
PROVIDERS: ADMIT Hospitalist; ATTEND Hospitalist
PROC: 0B948ZX Drainage of Right Upper Lobe Bronchus, Via Natural or Artificial Opening Endoscopic, Diagnostic (ICD-10-PCS; 2016-09-28)
PROC: 0B988ZX Drainage of Left Upper Lobe Bronchus, Via Natural or Artificial Opening Endoscopic, Diagnostic (ICD-10-PCS; 2016-09-28)
PROC: 0B958ZX Drainage of Right Middle Lobe Bronchus, Via Natural or Artificial Opening Endoscopic, Diagnostic (ICD-10-PCS; 2016-09-28)
PROC: 0B968ZX Drainage of Right Lower Lobe Bronchus, Via Natural or Artificial Opening Endoscopic, Diagnostic (ICD-10-PCS; 2016-09-28)
PROC: 0B9B8ZX Drainage of Left Lower Lobe Bronchus, Via Natural or Artificial Opening Endoscopic, Diagnostic (ICD-10-PCS; principal; 2016-09-28 08:00)
DX: J44.0 Chronic obstructive pulmonary disease with (acute) lower respiratory infection (principal); J12.9 Viral pneumonia, unspecified; J96.21 Acute and chronic respiratory failure with hypoxia; J96.22 Acute and chronic respiratory failure with hypercapnia; B37.0 Candidal stomatitis; E66.9 Obesity, unspecified; E78.5 Hyperlipidemia, unspecified; F51.04 Psychophysiologic insomnia; R00.0 Tachycardia, unspecified; I10 Essential (primary) hypertension; J44.1 Chronic obstructive pulmonary disease with (acute) exacerbation; K59.00 Constipation, unspecified; M17.0 Bilateral primary osteoarthritis of knee; N39.3 Stress incontinence (female) (male); T38.0X5A Adverse effect of glucocorticoids and synthetic analogues, initial encounter; F32.9 Major depressive disorder, single episode, unspecified; R07.89 Other chest pain; R73.9 Hyperglycemia, unspecified; J01.90 Acute sinusitis, unspecified; J45.30 Mild persistent asthma, uncomplicated; M19.042 Primary osteoarthritis, left hand; M19.041 Primary osteoarthritis, right hand; J20.9 Acute bronchitis, unspecified; Z68.29 Body mass index [BMI] 29.0-29.9, adult; Z79.899 Other long term (current) drug therapy; Z87.891 Personal history of nicotine dependence; Z88.1 Allergy status to other antibiotic agents
CPT/HCPCS: 31624; 36415; 71020; 80048; 80053; 81001; 82550; 82553; 83036; 84484; 85025; 85027; 85610; 85730; 87070; 87086; 87102; 87116; 87205; 87206; 87252; 87496; 87498; 87502; 87529; 87798; 88108; 88305; 89050; 93005; 94640; 94644; 94760; 96360; 96361; 99291

== ENCOUNTER → 2016-10-07 | Outpatient (CLI) | payer BC ==
[2016-10-07 09:20] LABS: CH 30.9; CHCM 31.8; HDW 2.18; HGB 14.6 gm/dL (11.4-16.0); MCH 31.1 pg (25.0-35.0); MCHC 31.8 g/dL (31.0-37.0); MCV 97.8 fL (80.0-100.0); Mean Platelet Volume 6.8; RBC 4.71 m/uL (3.80-5.40); RDW 13.5 % (11.5-15.5)
[2016-10-07 09:31] LABS: ALT 91 U/L (9-52); AST 38 U/L (14-36); Alkaline Phosphatase 68 U/L (38-126); Anion Gap 8 mmol/L; Blood Urea Nitrogen 19 mg/dL (7-17); Calcium 9.2 mg/dL (8.4-10.2); Carbon Dioxide 30 mmol/L (22-30); Chloride 104 mmol/L (98-107); Cholesterol 245 mg/dL (<200); Glucose 92 mg/dL (74-99); HDL Cholesterol 60 mg/dL (40-60); Non-African American GFR(MDRD) 59 (>60 ml/min/1.73 sqM); Potassium 4.6 mmol/L (3.5-5.1); Sodium 142 mmol/L (137-145); Total Bilirubin 0.6 mg/dL (0.2-1.3); Total Protein 6.5 g/dL (6.3-8.2)
[2016-10-07 09:41] LABS: Triglycerides 697 mg/dL (<150)
== END | disposition home or self-care (01) ==
LOC: LABWHC1 08:53
PROVIDERS: ATTEND Family Medicine
DX: J18.9 Pneumonia, unspecified organism (principal); E78.2 Mixed hyperlipidemia
CPT/HCPCS: 36415; 80053; 80061; 85027

== ENCOUNTER → 2018-09-20 | Outpatient (CLI) | payer BC ==
--- NOTE | 2018-09-20 19:34 | BD ---
EXAMINATION TYPE: Axial Bone Density DATE OF EXAM: 09/20/2018 COMPARISON: NONE CLINICAL HISTORY: 63 YR OLD FEMALE....ICD-10 CODE: M89.9 DISORDER OF BONE Height: 62 Weight: 166 FRAX RISK QUESTIONS: Glucocorticoids (More than 3mos): YES (Ex: prednisone, prednisolone, methylprednisolone, dexamethasone, and hydrocortisone). Current Tobacco Use: QUIT 19 YRS AGO RISK FACTORS HISTORY OF: STRESS FX IN BOTH ANKLES AT AGE 37 ONLY Active: YES Postmenopausal woman: YES AT AGE 53 Take estrogen and/or progesterone medications: YES, FOR 10 YRS Hyperparathyroidism: A TEEN ONLY MEDICATIONS: Prednisone or other steroids: ON AND OFF FOR EMPHYSEMA, FOR MANY YRS Additional Medications: PROZAC, STATIN FOR CHOLESTEROL, VIT D AND CALCIUM Additional History: CHOLESTEROL, EXAM MEASUREMENTS: Bone mineral densitometry was performed using the [employer] System. Bone mineral density as measured about the Lumbar spine is: ----- L1-L4(G/cm2): 0.873 T Score Values are as follows: ----- L1: -1.9 ----- L2: -3.7 ----- L3: -2.7 ----- L4: -2.2 ----- L1-L4: -2.6 Bone mineral density FIRST BONE DENSITY.....BASELINE STUDY Bone mineral density about the R hip (g/cm2): 0.833 Bone mineral density about the L hip (g/cm2): 0.852 T Score values are as follows: -----R Neck: -2.0 -----L Neck: -1.9 -----R Total: -1.4 -----L Total: -1.2 Bone mineral density FIRST BONE DENSITY..............BASELINE STUDY FRAX%s: THERE IS A 15.7% CHANCE FOR A MAJOR OSTEOPOROTIC FX AND A 2.4% FOR HIP.....PROBABILITY OF FX IN 10 YRS TIME IMPRESSION: Osteoporosis (T Score less than -2.5). There is increased fracture risk and therapy is usually indicated based on age. Re-Screen 1-2 years. NOTE: T-SCORE=SD OF THE YOUNG ADULT MEAN.
--- NOTE | 2018-09-21 13:16 | MM ---
Reason for exam: screening (asymptomatic). Last mammogram was performed 1 year and 5 months ago. History: Family history of breast cancer in sister. Implants in both breasts, 1984. Physical Findings: A clinical breast exam by your physician is recommended on an annual basis and results should be correlated with mammographic findings. MG 3D Screen Mammo Imp/Cad Bilateral CC, MLO, and ID view(s) were taken. Prior study comparison: May 01, 2017, mammogram. The breast tissue is heterogeneously dense. This may lower the sensitivity of mammography. Stable benign calcifications. Retropectoral implants are intact. No significant changes when compared with prior studies. ASSESSMENT: Benign, BI-RAD 2 RECOMMENDATION: Routine screening mammogram of both breasts in 1 year.
== END | disposition home or self-care (01) ==
LOC: RADBDWWP 08:56
PROVIDERS: ATTEND Obstetrics & Gynecology
DX: Z12.31 Encounter for screening mammogram for malignant neoplasm of breast (principal); M81.0 Age-related osteoporosis without current pathological fracture; Z98.82 Breast implant status
CPT/HCPCS: 77063; 77067; 77080

== ENCOUNTER → 2020-11-25 | Outpatient (CLI) | payer MEDICARE ==
--- NOTE | 2020-11-25 14:33 | BD ---
EXAMINATION TYPE: Axial Bone Density DATE OF EXAM: 11/25/2020 COMPARISON: NONE CLINICAL HISTORY: Height: 62 Weight: 133.3 FRAX RISK QUESTIONS: Alcohol (3 or more units per day): no Family History (Parent hip fracture): no Glucocorticoids (More than 3mos): no (Ex: prednisone, prednisolone, methylprednisolone, dexamethasone, and hydrocortisone). History of Fracture in Adulthood: yes Secondary Osteoporosis: 1. Type 1 Diabetes: no 2. Hyperthyroidism: no 3. Menopause before 45: yes 4. Malnutrition: no 5. Chronic liver disease: no Rheumatoid Arthritis: no Current Tobacco Use: no RISK FACTORS HISTORY OF: Surgery to Spine/Hip(right/left)/Wrist (right/left): no Family History of Osteoporosis: unsure Active: yes Diet low in dairy products/other sources of calcium: no Postmenopausal woman: around age 40 Lost more than 2 inches in height since high school: no MEDICATIONS: Additional History: EXAM MEASUREMENTS: Bone mineral densitometry was performed using the [employer] System. Bone mineral density as measured about the Lumbar spine is: ----- L1-L4(G/cm2): 0.985 T Score Values are as follows: ----- L2: -2.3 ----- L3: -1.9 ----- L4: -1.6 ----- L1-L4: -1.9 Bone mineral density has: increased 12.5 % since study of: 09.20.2018 Bone mineral density about the R hip (g/cm2): 0.756 Bone mineral density about the L hip (g/cm2): 0.752 T Score values are as follows: -----R Neck: -2.0 -----L Neck: -2.1 -----R Total: -1.5 -----L Total: -1.5 Bone mineral density has: increased -2.9 % since study of: 09.20.2018 IMPRESSION: Osteopenia (T Score between -2.5 and -1). There is slightly increased risk of fracture and the patient may be considered for treatment. Re-Screen 2-5 years. NOTE: T-SCORE=SD OF THE YOUNG ADULT MEAN.
--- NOTE | 2020-11-27 14:58 | MM ---
Reason for exam: screening (asymptomatic). Last mammogram was performed 2 years and 2 months ago. History: Patient is postmenopausal. Family history of breast cancer in sister. Implants in both breasts, 1984. Physical Findings: A clinical breast exam by your physician is recommended on an annual basis and results should be correlated with mammographic findings. MG 3D Screen Mammo Imp/Cad Bilateral CC, MLO, and ID view(s) were taken. Prior study comparison: September 20, 2018, bilateral MG 3d screen mammo imp/cad. May 01, 2017, mammogram. There are scattered fibroglandular densities. Retropectoral silicone implants. Stable right 12 o'clock focal asymmetry. No significant changes when compared with prior studies. ASSESSMENT: Negative, BI-RAD 1 RECOMMENDATION: Routine screening mammogram of both breasts in 1 year.
== END | disposition home or self-care (01) ==
LOC: RADBDWWP 12:35
PROVIDERS: ATTEND Family Medicine
DX: Z12.31 Encounter for screening mammogram for malignant neoplasm of breast (principal); M85.89 Other specified disorders of bone density and structure, multiple sites; Z80.3 Family history of malignant neoplasm of breast; Z78.0 Asymptomatic menopausal state
CPT/HCPCS: 77063; 77067; 77080

== ENCOUNTER → 2022-04-19 | Outpatient (CLI) | payer MEDICARE ==
--- NOTE | 2022-04-20 07:34 | MM ---
Reason for Exam: Screening (asymptomatic). Last mammogram was performed 1 year(s) and 5 month(s) ago. Patient History: Menarche at age 14. First Full-Term at age 23. Postmenopausal. Patient has history of breast feeding. 1984, Bilateral Implants. Sister had breast cancer, age 60. Risk Values: Manjula 5 year model risk: 2.9%. NCI Lifetime model risk: 10.3%. Prior Study Comparison: 05/01/2017 Screening Mammogram, Unknown. 09/20/2018 Bilateral Screening Mammogram, [facility]. 11/25/2020 Bilateral Screening Mammogram, [facility]. Tissue Density: There are scattered fibroglandular densities. Findings: Analyzed By CAD. There is no suspicious group of microcalcifications or new suspicious mass in either breast. Bilateral breast implants remain intact. Overall Assessment: Benign, BI-RAD 2 Management: Screening Mammogram of both breasts in 1 year. A clinical breast exam by your physician is recommended on an annual basis and results should be correlated with mammographic findings. Electronically signed and approved by: Alton Vogt M.D. Radiologis
== END | disposition home or self-care (01) ==
LOC: RADMAMWWP 14:37
PROVIDERS: ATTEND Family Medicine
DX: Z12.31 Encounter for screening mammogram for malignant neoplasm of breast (principal); Z78.0 Asymptomatic menopausal state; Z80.3 Family history of malignant neoplasm of breast
CPT/HCPCS: 77063; 77067

== ENCOUNTER → 2022-06-06 | Outpatient (CLI) | payer MEDICARE ==
--- NOTE | 2022-06-06 10:57 | MR ---
EXAMINATION TYPE: MR brain and iac wo/w con DATE OF EXAM: 06/06/2022 COMPARISON: None HISTORY: Left hearing loss and tinnitus TECHNIQUE: Multiplanar, multisequence images of the brain and IAC is performed without and with IV contrast, uti lizing 6 mL intravenous Gadavist . FINDINGS: Diffusion weighted images demonstrate no evidence of a recent infarct or other diffusion ab normality. There a few scattered focal areas of abnormal signal in the white matter which are nonspe cific. Focal area of abnormal signal in the left basal ganglia most remote lacunar infarct.. The bra in volume is age appropriate. Midline structures demonstrate normal morphology. The craniocervical junction appears within normal limits. Post contrast images demonstrate no abnormal enhancement. The dural venous sinuses appear pa tent. Mild changes of chronic sinusitis and the globes are intact. Mastoid air cells are clear. IMPRESSION: 1. No evidence of cerebellopontine mass or acoustic schwannoma. 2. Mild chronic sinusitis. 3. A few scattered focal areas of abnormal signal within the white matter are nonspecific but most ty pical of remote white matter ischemia.
== END | disposition home or self-care (01) ==
LOC: RADMRIMAIN 09:09
PROVIDERS: ATTEND Otolaryngology
DX: J32.9 Chronic sinusitis, unspecified (principal); G93.89 Other specified disorders of brain; H93.3X9 Disorders of unspecified acoustic nerve; H93.19 Tinnitus, unspecified ear; H91.90 Unspecified hearing loss, unspecified ear
CPT/HCPCS: 70553; A9585

== ENCOUNTER → 2023-04-26 | Outpatient (CLI) | payer MEDICARE ==
--- NOTE | 2023-04-26 11:39 | BD ---
EXAMINATION TYPE: Axial Bone Density DATE OF EXAM: 04/26/2023 CLINICAL HISTORY: 67 years old Female. ICD-10 CODE: M89.9 DISORDER OF BONE Height: 62in Weight: 157lb FRAX RISK QUESTIONS: History of Fracture in Adulthood: yes Secondary Osteoporosis: 3. Menopause before 45: yes RISK FACTORS HISTORY OF: Family History of Osteoporosis: yes Active: yes Postmenopausal woman: yes Take estrogen and/or progesterone medications: yes, none current How long: about 10 years MEDICATIONS: Additional Medications: cholesterol med, calcium with vitamin d Additional History: angella ankle fx EXAM MEASUREMENTS: Bone mineral densitometry was performed using the [employer]. Bone mineral density as measured about the Lumbar spine is: ----- L1-L4(G/cm2): 0.972 T Score Values are as follows: ----- L1: -1.0 ----- L2: -2.0 ----- L3: -1.7 ----- L4: -2.3 ----- L1-L4: -1.7 Z Score Values are as follows: ----- L1: 0.5 ----- L2: -0.6 ----- L3: -0.2 ----- L4: -0.9 ----- L1-L4: -0.3 Bone mineral density has: Increased 1.5% since study of: 11-25-20 Bone mineral density about the R hip (g/cm2): 0.801 Bone mineral density about the L hip (g/cm2): 0.830 T Score values are as follows: -----R Neck: -2.0 -----L Neck: -2.3 -----R Total: -1.6 -----L Total: -1.4 Z Score values are as follows: -----R Neck: -0.5 -----L Neck: -0.8 -----R Total: -0.5 -----L Total: -0.2 Bone mineral density has: Decreased -0.4% since study of: 11-25-20 FRAX%s: The graph provided illustrates a 30.9% chance for a major osteoporotic fx and a 7.4% chance f or the hips probability for fx in 10 years time. IMPRESSION: Osteopenia (T Score between -2.5 and -1). There is slightly increased risk of fracture and the patient may be considered for treatment. Re-Screen 2-5 years. NOTE: T-SCORE=SD OF THE YOUNG ADULT MEAN.
--- NOTE | 2023-04-27 10:31 | MM ---
Reason for Exam: Hx of breast augmentation, asymptomatic. Last screening mammogram was performed 12 month(s) ago. Patient History: Menarche at age 14. First Full-Term at age 23. Postmenopausal. Patient has history of breast feeding. 1984, Bilateral Implants. Sister had breast cancer, age 60. Risk Values: Manjula 5 year model risk: 3.0%. NCI Lifetime model risk: 9.9%. Prior Study Comparison: 09/20/2018 Bilateral Screening Mammogram, [facility]. 11/25/2020 Bilateral Screening Mammogram, [facility]. 04/19/2022 Bilateral MG 3D screen mammo imp/cad., [facility]. Tissue Density: There are scattered fibroglandular densities. Findings: Analyzed By CAD. There is no suspicious group of microcalcifications or new suspicious mass in either breast. Implants are intact. Overall Assessment: Negative, BI-RAD 1 Management: Screening Mammogram of both breasts in 1 year. . Patient should continue monthly self-breast exams. A clinical breast exam by your physician is recommended on an annual basis. This exam should not preclude additional follow-up of suspicious palpable abnormalities. Note on Manjula scores and lifetime risk: 1. A Manjula score greater than 3% is considered moderate risk. If this is the case, consider specialist referral to assess eligibility for a risk reducing agent. 2. If overall lifetime risk for the development of breast cancer is 20% or higher, the patient may qualify for future screening with alternating mammogram and breast MRI. Electronically signed and approved by: Alton Vogt M.D. [facility]iolog[facility]
== END | disposition home or self-care (01) ==
LOC: RADBDWWP 09:49
PROVIDERS: ATTEND Family Medicine
DX: Z12.31 Encounter for screening mammogram for malignant neoplasm of breast (principal); M85.89 Other specified disorders of bone density and structure, multiple sites; Z78.0 Asymptomatic menopausal state; Z80.3 Family history of malignant neoplasm of breast; Z98.82 Breast implant status
CPT/HCPCS: 77063; 77067; 77080